=== PATIENT | female | born 1960 | race Hispanic/Latino ===

== ENCOUNTER 2017-03-05 13:00 | Inpatient (IN) | payer OTHER ==
[2017-03-05 14:15] LABS: Anion Gap 17 mmol/L; Blood Urea Nitrogen 15 mg/dL (7-17); Calcium 9.2 mg/dL (8.4-10.2); Carbon Dioxide 30 mmol/L (22-30); Chloride 100.3 mmol/L (98-107); Glucose 94 mg/dL (65-100); Potassium 5.1 mmol/L (3.6-5.0); Sodium 142 mmol/L (137-145)
[2017-03-05 14:20] LABS: Basophils % (Auto) 1.3 % (0.0-1.8); Eosinophils % (Auto) 0.9 % (0.0-4.3); Hematocrit 37.7 % (30.3-42.9); Hemoglobin 12.1 gm/dl (10.1-14.3); Mean Corpuscular HGB Conc 32 % (30-34); Mean Corpuscular Volume 78 fl (79-97); Platelet Count 363 K/mm3 (140-440); Red Blood Count 4.81 M/mm3 (3.65-5.03); Red Cell Distribution Width 15.4 % (13.2-15.2); White Blood Count 7.1 K/mm3 (4.5-11.0)
[2017-03-05 14:34] LABS: Mean Corpuscular Hemoglobin 25 pg (28-32)
[2017-03-05] MEDS ORDERED: MORPHINE IV ONE (20:55)
[2017-03-05] MEDS ORDERED: BABY ASPIRIN PO ONE (20:55)
--- NOTE | 2017-03-05 21:00 | Emergency Department Report ---
ED Chest Pain HPI - General Chief Complaint: Chest Pain Stated Complaint: LT CHEST PAIN/SOB Time Seen by Provider: 03/05/17 20:49 Source: patient Mode of arrival: Ambulatory Limitations: No Limitations - History of Present Illness Initial Comments: This is a 57-year-old female presents to the emergency department from home with complaint of left-sided heaviness/pressure in the chest. Patient tried to deal with the discomfort and went to work. However she started feeling diaphoretic and had some tingling in the left side of the jaw and in her hands and became concerned. She denies any significant shortness of breath at this time. She is a tobacco smoker but is down to a few cigarettes per day. She did not take anything specifically to treat her symptoms today. She has a past medical history of cardiomyopathy, atrial fibrillation. She is not currently have a primary care doctor. She sees a Dr. Metcalf at the [facility] for cardiology. She said she recently had an echocardiogram but does not no the results. She last had a stress test 2 years ago here at [facility]. No recent travel or sick contacts at home. Severity scale (0 -10): 8 - Related Data Home Medications Medication Instructions Recorded Confirmed Last Taken Digoxin [Lanoxin] 0.25 mg PO DAILY 09/24/16 09/24/16 03/05/17 Escitalopram [Lexapro] 10 mg PO DAILY 09/24/16 09/24/16 03/05/17 Furosemide [Lasix TAB] 40 mg PO QDAY 09/24/16 09/24/16 03/05/17 Losartan [Cozaar] 50 mg PO QDAY 09/24/16 09/24/16 03/05/17 Metoprolol [Lopressor] 25 mg PO BID 09/24/16 09/24/16 03/05/17 Potassium Chloride 10 meq PO QDAY 09/24/16 09/24/16 03/05/17 Warfarin [Coumadin] 2.5 mg PO 3XW 09/24/16 09/24/16 03/05/17 Warfarin [Coumadin] 5 mg PO 4XW 09/24/16 09/24/16 03/05/17 Previous Rx's Medication Instructions Recorded Last Taken Type HYDROcodone/APAP 10-325 [Pep[place]rell 1 each PO Q6HR PRN #10 tablet 03/14/15 03/05/17 Rx 10-325 mg TAB] PHENObarb/HYOSCY/ATROPINE/SCOP 16.2 mg PO Q4HR #10 tablet 03/14/15 03/05/17 Rx [] Temazepam [Restoril] 15 mg PO QHS PRN #30 capsule 03/14/15 03/05/17 Rx HYDROcodone/APAP 5-325 [Pepperell 1 each PO Q6HR PRN #8 tablet 09/24/16 03/05/17 Rx 5/325] Allergies Allergy/AdvReac Type Severity Reaction Status Date / Time NSAIDS (Non-Steroidal AdvReac Unknown Verified 09/15/16 14:36 Anti-Inflamma NETTA score - Netta Score Age > 65: (0) No Aspirin use within the Past 7 Days: (0) No 3 or more CAD Risk Factors: (1) Yes 2 or more Angina events in past 24 hrs: (1) Yes Known CAD with more than 50% Stenosis: (0) No Elevated Cardiac Markers: (0) No ST Deviation Greater than 0.5mm: (0) No NETTA Score: 2 ED Review of Systems ROS: Stated complaint: LT CHEST PAIN/SOB Other details as noted in HPI Comment: All other systems reviewed and negative Constitutional: diaphoresis. denies: chills, fever Eyes: denies: eye pain, eye discharge, vision change ENT: denies: ear pain, throat pain Respiratory: denies: cough, shortness of breath, wheezing Cardiovascular: chest pain, edema Gastrointestinal: denies: abdominal pain, nausea, diarrhea Genitourinary: denies: urgency, dysuria, discharge Musculoskeletal: denies: back pain, joint swelling, arthralgia Skin: denies: rash, lesions Neurological: paresthesias. denies: headache ED Past Medical Hx - Past Medical History Previous Medical History?: Yes Hx Hypertension: Yes Hx Congestive Heart Failure: No Hx Diabetes: No Hx Asthma: No Hx COPD: No Hx HIV: No Additional medical history: Atrial fibrillation - Surgical History Past Surgical History?: Yes Hx Cholecystectomy: Yes Additional Surgical History: gastric by-pass, oophorectomy, hysterectomy, skin grafts, exploratory laparotomy - Social History Smoking Status: Light Tobacco Smoker Substance Use Type: None - Medications Home Medications: Home Medications Medication Instructions Recorded Confirmed Last Taken Type HYDROcodone/APAP 10-325 [Pepperell 1 each PO Q6HR PRN #10 tablet 03/14/15 03/05/17 Rx 10-325 mg TAB] PHENObarb/HYOSCY/ATROPINE/SCOP 16.2 mg PO Q4HR #10 tablet 03/14/15 03/05/17 Rx [] Temazepam [Restoril] 15 mg PO QHS PRN #30 capsule 03/14/15 09/24/16 03/05/17 Rx Digoxin [Lanoxin] 0.25 mg PO DAILY 09/24/16 09/24/16 03/05/17 History Escitalopram [Lexapro] 10 mg PO DAILY 09/24/16 09/24/16 03/05/17 History Furosemide [Lasix TAB] 40 mg PO QDAY 09/24/16 09/24/16 03/05/17 History HYDROcodone/APAP 5-325 [Pepperell 1 each PO Q6HR PRN #8 tablet 09/24/16 03/05/17 Rx 5/325] Losartan [Cozaar] 50 mg PO QDAY 09/24/16 09/24/16 03/05/17 History Metoprolol [Lopressor] 25 mg PO BID 09/24/16 09/24/16 03/05/17 History Potassium Chloride 10 meq PO QDAY 09/24/16 09/24/16 03/05/17 History Warfarin [Coumadin] 2.5 mg PO 3XW 09/24/16 09/24/16 03/05/17 History Warfarin [Coumadin] 5 mg PO 4XW 09/24/16 09/24/16 03/05/17 History ED Physical Exam - General Limitations: No Limitations - Other Other exam information: GENERAL: The patient is well-developed well-nourished. HEENT: Normocephalic. Atraumatic. Extraocular motions are intact. Patient has moist mucous membranes. Pupils equal reactive to light bilaterally. NECK: Supple. Trachea is midline. CHEST/LUNGS: Irregularly irregular with controlled rate. HEART/CARDIOVASCULAR: Regular. There is no tachycardia. There is no gallop rub or murmur. ABDOMEN: Abdomen is soft, nontender. Patient has normal bowel sounds. There is no abdominal distention. SKIN: Skin is warm and dry. NEURO: The patient is awake, alert, and oriented. The patient is cooperative. The patient has no focal neurologic deficits. The patient has normal speech. MUSCULOSKELETAL: There is no tenderness or deformity. There is no limitation range of motion. There is no evidence of acute injury. ED Course Vital Signs 03/05/17 03/05/17 03/05/17 13:35 20:20 20:31 Temperature 98.7 F Pulse Rate 72 84 Respiratory 18 38 H Rate Blood Pressure 146/88 Blood Pressure [Left] O2 Sat by Pulse 98 96 97 Oximetry 03/05/17 03/05/17 03/05/17 20:40 20:45 20:50 Temperature Pulse Rate 73 78 71 Respiratory 7 L 14 18 Rate Blood Pressure 127/93 136/81 Blood Pressure 152/64 [Left] O2 Sat by Pulse 98 98 Oximetry 03/05/17 03/05/17 03/05/17 21:00 21:10 21:20 Temperature Pulse Rate 73 80 76 Respiratory 12 16 17 Rate Blood Pressure 149/90 149/90 149/105 Blood Pressure [Left] O2 Sat by Pulse 97 98 98 Oximetry 03/05/17 03/05/17 03/05/17 21:30 21:40 21:50 Temperature Pulse Rate 73 74 85 Respiratory 16 9 L 10 L Rate Blood Pressure 140/80 140/80 138/77 Blood Pressure [Left] O2 Sat by Pulse 99 99 99 Oximetry 03/05/17 03/05/17 03/05/17 22:00 22:10 22:20 Temperature Pulse Rate 77 76 77 Respiratory 34 H 10 L 23 Rate Blood Pressure 133/76 133/76 124/79 Blood Pressure [Left] O2 Sat by Pulse 98 99 Oximetry 03/05/17 03/05/17 03/05/17 22:30 22:40 23:32 Temperature Pulse Rate 74 74 Respiratory 12 9 L Rate Blood Pressure 122/70 122/70 122/70 Blood Pressure [Left] O2 Sat by Pulse 98 98 98 Oximetry 03/05/17 03/05/17 03/05/17 23:40 23:50 23:52 Temperature Pulse Rate 71 67 76 Respiratory 12 13 11 L Rate Blood Pressure 121/73 129/75 129/75 Blood Pressure [Left] O2 Sat by Pulse 97 98 97 Oximetry 03/06/17 03/06/17 03/06/17 00:00 00:10 00:20 Temperature Pulse Rate 67 69 79 Respiratory 11 L 30 H 11 L Rate Blood Pressure 125/68 122/70 127/64 Blood Pressure [Left] O2 Sat by Pulse 96 95 95 Oximetry 03/06/17 03/06/17 03/06/17 00:30 00:40 00:50 Temperature Pulse Rate 70 69 68 Respiratory 12 24 12 Rate Blood Pressure 132/68 132/68 137/58 Blood Pressure [Left] O2 Sat by Pulse 95 96 96 Oximetry 03/06/17 03/06/17 03/06/17 01:00 01:10 01:20 Temperature Pulse Rate 77 85 81 Respiratory 11 L 24 18 Rate Blood Pressure 134/59 134/59 129/53 Blood Pressure [Left] O2 Sat by Pulse 95 95 96 Oximetry 03/06/17 03/06/17 03/06/17 01:30 01:40 01:50 Temperature Pulse Rate 80 81 74 Respiratory 15 15 30 H Rate Blood Pressure 141/80 141/80 141/80 Blood Pressure [Left] O2 Sat by Pulse 94 94 97 Oximetry 03/06/17 03/06/17 02:00 02:10 Temperature Pulse Rate 83 76 Respiratory 13 14 Rate Blood Pressure 117/69 117/69 Blood Pressure [Left] O2 Sat by Pulse 96 97 Oximetry ED Medical Decision Making - Lab Data Result diagrams: 03/05/17 13:37 03/05/17 13:37 - EKG Data -: EKG Interpreted by Me - EKG Data Interpretation: other (atrial fibrillation, normal axis, normal rate, nonspecific ST-T changes) - Radiology Data Radiology results: report reviewed, image reviewed interpreted by me: Chest x-ray did not show any acute process. Heart is normal shape and size. No effusions. No pneumothorax. No signs of pneumonia seen. CT angiography of the chest shows no definite acute pulmonary embolism. Nodular lesions are seen in the left lower lobe and left upper lobe. This is a nonspecific finding. It could be related to infection or scarring but other neoplastic process is not excluded. Follow-up recommended in 3 months. - Medical Decision Making 57-year-old female presents with acute left-sided chest pressure and discomfort. Patient is chronically in atrial fibrillation. She had a subtherapeutic INR level so a d-dimer was sent. D-dimer was elevated and equivocal so CT angiography was done. CT does not show any signs of pulmonary embolism but does show some nonspecific left-sided lung nodules. The patient continues to have some discomfort and has not had a full cardiac workup including stress test and therefore will be admitted to the hospital for further evaluation and treatment. She's been accepted for admission by the hospitalist, Dr. Sood. - Differential Diagnosis [place], PE, pneumonia, CHF Critical Care Time: No Critical care attestation.: If time is entered above; I have spent that time in minutes in the direct care of this critically ill patient, excluding procedure time. ED Disposition Clinical Impression: Lung nodules, Subtherapeutic international normalized ratio (INR) Chest pain Qualifiers: Chest pain type: unspecified Qualified Code(s): R07.9 - Chest pain, unspecified Atrial fibrillation Qualifiers: Atrial fibrillation type: chronic Qualified Code(s): I48.2 - Chronic atrial fibrillation Disposition: OP ADMITTED IP TO THIS HOSP Is pt being admited?: Yes Condition: Stable Time of Disposition: 03:19
[2017-03-05] MEDS ORDERED: MORPHINE ONE (21:02)
[2017-03-05 21:42] LABS: INR 1.3 (0.87-1.13)
[2017-03-05 21:43] LABS: Partial Thromboplastin Time 30.6 Sec. (24.2-36.6)
[2017-03-05] MEDS ORDERED: NACL ONE (22:44)
--- NOTE | 2017-03-05 23:30 | Cat Scan Report ---
FINAL REPORT EXAM: CT ANGIO CHEST HISTORY: CP, elevated dimer TECHNIQUE: Serial axial images through the chest during intravenous administration of 100 milliliters Omnipaque 350 contrast with coronal, sagittal and oblique reconstructions PRIORS: None. FINDINGS: Mixed density nodular foci are seen in the left lower lobe. The largest of these measures approximately 7 millimeters. There is a 4.1 millimeter nodular focus in the left upper lobe which can be seen in series 3, image 43. No pleural effusion is seen. No adenopathy is seen in the mediastinum. Heart measures approximately 14.5 centimeters in length. No abnormal filling defects are identified in the pulmonary arteries. Surgical sequelae are seen in the stomach. There are degenerative changes in the spine. IMPRESSION: 1. No definite acute pulmonary embolism is identified. 2. Nodular lesions are seen in the left lower lobe and left upper lobe. This is a nonspecific finding. It could be related to infection or scarring, but other neoplastic process is not excluded. There are currently no studies available for direct comparison. Follow-up study can be performed in 3 months to assess for stability.
[2017-03-06] MEDS ORDERED: TYLENOL PO PRN (00:29)
[2017-03-06] MEDS ORDERED: MORPHINE IV PRN (00:29)
[2017-03-06] MEDS ORDERED: NITROSTAT SL PRN (00:29)
[2017-03-06] MEDS ORDERED: NORCO 10/325 PO PRN (00:40)
[2017-03-06] MEDS ORDERED: RESTORIL PO PRN (00:40)
[2017-03-06] MEDS ORDERED: ATROPINE PO SCH (02:00)
[2017-03-06] MEDS ORDERED: HYOSCY PO SCH (02:00)
[2017-03-06] MEDS ORDERED: SCOP PO SCH (02:00)
[2017-03-06] MEDS ORDERED: PHENOBARB PO SCH (02:00)
[2017-03-06] MEDS: ZOFRAN IV PRN ×2 (02:44→11:22)
[2017-03-06] MEDS: MORPHINE IV PRN ×2 (02:44→11:22)
[2017-03-06] MEDS: NITRO-BID 2% TP SCH ×3 (02:45→13:29)
[2017-03-06] MEDS ORDERED: HEPARIN SUB-Q SCH (06:00)
--- NOTE | 2017-03-06 06:45 | History and Physical Report ---
CHIEF COMPLAINT: Chest pain. HISTORY OF PRESENT ILLNESS: The patient is a 57-year-old female who started having left-sided precordial chest heaviness at home and went to walk and started noticing diaphoresis and tingling in the left hand. Also, the patient felt nauseated with some shortness of breath. The patient noted that she had 2D echo recently, the last 7 to 14 days and does not know the results, because she has history of cardiomyopathy, had a stress test done 2 years ago at [facility]. There is no history of dizziness. The patient admitted to having some spots in her vision during this episode of chest pain. PAST MEDICAL HISTORY: Pertinent for hypertension, atrial fibrillation, on Coumadin, cardiomyopathy. PAST SURGICAL HISTORY: Pertinent for cholecystectomy, gastric bypass surgery, oophorectomy, hysterectomy, skin graft, exploratory laparotomy. SOCIAL HISTORY: The patient smokes cigarettes. She does not drink alcohol and does not use illicit drugs. FAMILY HISTORY: Pertinent for heart disease in the mother. MEDICATIONS: The patient is on the following medications: [place]yce 10/325 mg 1 one by mouth every 6 hours as needed for pain, phenobarbital/hyoscyamine/atropine, ____ mg every 4 hours, temazepam 15 mg at bedtime for insomnia, digoxin 0.25 mg by mouth daily, Lexapro 10 mg by mouth daily, Lasix 40 mg by mouth daily, losartan or Cozaar 50 mg by mouth daily, metoprolol, Lopressor 25 mg by mouth twice daily, potassium chloride 10 mEq by mouth daily, Coumadin 2.5 mg 3 times a week and 5 mg 4 times a week. ALLERGIES: The patient is allergic to nonsteroidal antiinflammatory agents. REVIEW OF SYSTEMS: CONSTITUTIONAL: There is no fever, no chills. Diaphoresis present. HEENT: There is no headache or sore throat. CARDIOVASCULAR: Chest pain present. No orthopnea. RESPIRATORY: Shortness of breath present. No cough. GASTROINTESTINAL SYSTEM: There is nausea, but no vomiting, no abdominal pain, diarrhea or constipation. NEUROLOGICAL SYSTEM: There is no numbness, no dizziness, no altered mental status. MUSCULOSKELETAL SYSTEM: There is no joint pain or swelling. DERMATOLOGICAL SYSTEM: There is no skin rash or itching. GENITOURINARY: There is no dysuria, hematuria, or flank pain. Rest of system review is normal. PHYSICAL EXAMINATION: GENERAL: At the time of exam, the patient was found to be alert and oriented x 3 and not in acute distress. VITAL SIGNS: Shows normal temperature with pulse of 80, respirations 15, blood pressure 141/80, O2 sat of 94% on room air. HEENT: Showed pupils to be equal, round, reactive to light and accommodation. Extraocular muscles are intact. NECK: Supple with no JVD or carotid bruit. CARDIOVASCULAR SYSTEM: Show first and second heart sounds with no gallops or murmurs. RESPIRATORY: Showed good air entry on both sides of the lung with no abnormal breath sounds. GASTROINTESTINAL: Shows abdomen to be full, soft, nontender with no organomegaly or rigidity. NEUROLOGICAL: Showed no focal deficit. MUSCULOSKELETAL: Show no joint swelling or tenderness. DERMATOLOGICAL: Show no skin rash. GENITOURINARY: Showing no costovertebral angle tenderness. PERTINENT LABORATORY DATA AND IMAGING STUDIES: The patient had a CT angiogram of the chest done that shows no definite acute pulmonary embolism, but there is finding of nodular lesions in the left lower lobe and left upper lobe and the radiologist say that it is nonspecific and said it could be related to infection or scarring, though the other neoplastic processes are not excluded, there are currently no studies available for direct comparison and the radiologist recommended a followup study in 3 months to assess for stability of these nodules in the left lung. The patient had CBC done with normal white count, normal hemoglobin and normal hematocrit. CBC differential was unremarkable. Coagulation studies showed a PT of 16.1 with INR of 1.30, which is subtherapeutic for the patient, expected INR of 2 to 3. The patient's D-dimer was elevated with a value of 352 which was ____ for his CT angiogram with chest pain. Chemistry shows slight decrease in potassium of 5.1 and normal renal function test and cardiac enzyme, troponin was unremarkable. Digoxin level was low with a value of 0.7. DIAGNOSIS: Chest pain. PLAN: The patient will be admitted to medical floor on telemetry using chest pain pathway. We will have cardiac enzymes checked q. 6 hours x 2 more level. The patient will be on nitro paste half inch to anterior chest wall every 8 hours and will be on sublingual nitroglycerin 0.4 mg every 5 minutes for breakthrough chest pain. The patient will also be on IV morphine 2 mg every 6 hours as needed for pain and will be on IV Zofran 4 mg every 6 hours for nausea and vomiting. The patient will be on Tylenol 650 mg by mouth for fever, headache and will be n.p.o. until morning for a Lexiscan stress test in the morning. The patient will be on oxygen by nasal cannula at 2 liters per minute and will be on her home medications as shown in the medication reconciliation section. The patient will not be on aspirin because of intake of Coumadin. JOB# [id number] OCN/NTS
[2017-03-06 07:24] LABS: Creatine Kinase MB 1.7 ng/mL (0.0-4.0)
--- NOTE | 2017-03-06 07:35 | XRay Report ---
Single view chest: Compared to 03/13/15. History: Chest pain. Findings: Cardiomegaly. Trachea is midline. No consolidation, pneumothorax or pleural effusion. Impression: No acute cardiopulmonary findings.
[2017-03-06] MEDS ORDERED: LEXISCAN IV ONE (09:00)
--- NOTE | 2017-03-06 09:11 | Discharge Summary ---
Providers - Providers Date of Admission: 03/06/17 00:28 Date of discharge: 03/06/17 Attending physician: ROLY MALCOLM MD Primary care physician: WHITE SPOOLER Hospitalization Condition: Stable Disposition: DISCHARGED TO HOME OR SELFCARE Time spent for discharge: 35 MINS Core Measure Documentation - Palliative Care Palliative Care/ Comfort Measures: Not Applicable - Core Measures Any of the following diagnoses?: none - VTE Discharge Requirements Deep Vein Thrombosis/Pulmonary Embolism Present on Admission: No Exam - Constitutional Vitals: Temp Pulse Resp BP Pulse Ox 97.8 F 87 18 100/55 97 03/06/17 05:09 03/06/17 06:20 03/06/17 05:09 03/06/17 05:09 03/06/17 05:09 Plan Activity: advance as tolerated, fall precautions Diet: low fat, low salt Special Instructions: record daily BP diary, smoking cessation Follow up with: PRIMARY CARE, [Primary Care Provider] - 3-5 Days
--- NOTE | 2017-03-06 09:21 | Admit Criteria Form ---
Admission Criteria Documentation: CARDIOLOGY GRG Clinical Indications for Admission to Inpatient Care ( Place 'X' for any and all applicable criteria): Hospital admission is needed for appropriate care of the patient because of ANY ONE of the following (1): [ ] I. Hemodynamic instability as indicated by ALL of the following (1)(2)(3) (4)(5) [ ]a) Vital signs or other findings not as expected for chronic patient condition or baseline [ ]b) Instability indicated by ANY ONE of the following: [ ]i) Hypotension [ ]ii) Symptomatic Tachycardia unresponsive to treatment ( e.g., analgesia, fluids, sedation as indicated) [ ]iii) Inadequate perfusion indicated by ANY ONE of the following: [ ] 1) Lactic acidosis (> 2 mmol/L) [ ] 2) New abnormal capillary refill (> 3 seconds) [ ] 3) Reduced urine output [ ] 4) New altered mental status [ ]iv) Orthostatic vital sign changes unresponsive to treatment (e.g., fluids) [ ]v) IV inotropic or vasopressor medication required to maintain adequate blood pressure or perfusion [ ] II. Severe heart failure as indicated by ANY ONE of the following(17)(18) [ ]a) Respiratory distress [ ]b) Hypotension [ ]c) Anasarca (refractory to outpatient therapy) [ ]d) Cardiac arrhythmias of immediate concern [ ]e) Myocardial ischemia [ ] III. Cardiac arrhythmias or findings of immediate concern indicated by ANY ONE of the following (19)(20): [ ] a) Heart rhythms that are inherently dangerous or unstable indicated by ANY ONE of the following (21)(22)(23): [ ] i) Resuscitated ventricular fibrillation or cardiac arrest [ ] ii) Ventricular escape rhythm [ ] iii) Sustained ventricular tachycardia (30 seconds or more of ventricular rhythm at greater than 100 beats per minute) [ ] iv) Nonsustained ventricular tachycardia and ANY ONE of the following: [ ] 1) Suspected cardiac ischemia as cause or consequence of ventricular tachycardia [ ] 2) In setting of acute myocarditis [ ] b) Unstable cardiac conduction defects indicated by ANY ONE of the following(23)(24)(25) [ ] i) Type II second-degree atrioventricular block [ ]ii) Third-degree atrioventricular block [ ]iii) New-onset left bundle branch block with suspected myocardial ischemia [ ]c) Any heart rhythm and ANY ONE of the following (21)(22)(26)(27) (28) [ ] i) Continuous long-term ECG monitoring needed (e.g., initiation of drug requiring monitoring for more than 24 hours) [ ] ii) Patient has automatic implanted cardioverter defibrillator that is repeatedly firing, malfunctioning, or in need of immediate adjustment of settings beyond the scope of ambulatory or observation care [ ]d) Heart rhythms of concern due to ANY ONE of the following: [ ] i) Hypotension [ ] ii) Respiratory distress [ ] iii) Association with other significant symptoms (e.g., bradycardia with syncope or ongoing dizziness, supraventricular tachycardia with chest pain (14)(15)(17) [ ] IV. Monitoring for cardiac contusion beyond the scope of observation care needed [A](30)(31)(32) [ ] V. Surgical or device complication (e.g., valve replacement complication , pacemaker dysfunction) (35)(41)(44)(45)(46) [ ] . Inpatient palliative care needed. [B](49) Also use Inpatient Palliative Care Criteria [ ] VII. Nonbacterial thrombotic (marantic) endocarditis (36)(43)(47)(48) [X ] VIII. Cardiology condition, symptom, or finding for which emergency and observation care has failed or are not considered appropriate. [ ] IX. Acute valvular disease requiring inpatient as indicated by ANY ONE of the following (41) [ ]a) Acute valvular regurgitation (42) [ ]b) Noninfectious valvulitis (43) [ ]c) Obstructive valve thrombosis [ ]d) Paravalvular leak [ ]e) Other significant valvular disorder remaining after emergency or observation level of care (as appropriate) [ ]X. Pericardial disease requiring inpatient treatment as indicated by ANY ONE of the following (33)(34)(35)(36)(37) [ ]a) Suspected tamponade (38)(39)(40) [ ]b) Hemopericardium [ ]c) Other significant pericardial disorder remaining after emergency or observation level of care (as appropriate) [ ] XI. Cardiac ischemia beyond scope of emergency and observation care. [ ] XII. Hypertension requiring inpatient treatment as indicated by ANY ONE of the following (6)(7)(8) [ ]a) SBP greater than 220 mm Hg or DBP greater than 120 mmHg despite treatment [ ]b) SBP greater than 140 mm Hg or DBP greater than 100 mm Hg with evidence of acute end organ damage as indicated by ANY ONE of the following [ ] i) Altered mental status [ ] ii) Acute renal failure as indicated by new onset of ANY ONE of the following (9)(10)(11)(12)(13) [ ]1) 3-fold rise in serum creatinine from baseline [ ]2) Serum creatinine greater than 4 mg/dL ( 354 micromoles/L) with acute rise greater than 0.5 mg/dL (44.2 micromoles/L) [ ]3) Reduction of more than 75% in estimated glomerular filtration rate from baseline [ ]4) Estimated glomerular filtration rate less than 35 mL/min/1.73m2 (0.59 mL/sec/1.73m2) in child up to 18 years of age [ ]5) Cessation of urine output indicated by ALL of the following [ ]A. Adequate volume status [ ]B. Inadequate urine output as indicated by ANY ONE of the following [ ]a. Urine output less than 0.3 mL/kg/hr for 24 hours [ ]b. Anuria (urine output less than 0.1 mL/kg/hr) for 12 hours [ ] iii) Aortic dissection [ ] iv) Myocardial Ischemia [ ] v) Left ventricular heart failure [ ]vi) Retinal Hemorrhage [ ]vii) Other significant finding [ ]c) Hypertension in child requiring inpatient treatment as indicated by ALL of the following(14)(15)(16) [ ] i) Outpatient treatment not effective, not available, or not appropriate [ ]ii) SBP or DBP greater than 95th percentile for age [ ]iii) Evidence of acute end organ damage as indicated by ANY ONE of the following [ ]1) Altered mental status [ ]2) Acute renal failure as indicated by new onset of ANY ONE of the following(9)(10)(11)(12)(13) [ ]A. 3-fold rise in serum creatinine from baseline [ ]B. Serum creatinine greater than 4 mg/dL (354 micromoles/L) with acute rise greater than 0.5 mg/dL (44.2 micromoles/L) [ ]C. Reduction of more than 75% in estimated glomerular filtration rate from baseline [ ]D. Estimated glomerular filtration rate less than 35 mL/min/1.73m2 (0.59 mL/sec/1.73m2) in child up to 18 years of age [ ]E. Cessation of urine output indicated by ALL of the following [ ]a. Adequate volume status [ ]b. Inadequate urine output as indicated by ANY ONE of the following [ ]i) Urine output less than 0.3 mL/kg/hr for 24 hours [ ]ii) Anuria ( urine output less than 0.1 mL/kg/hr) for 12 hours [ ]3) Severe headache [ ]4) Visual disturbance [ ]5) Retinal hemorrhage [ ]6) Other significant finding [ ]XIII. Complications of transplanted heart indicated by ANY ONE of the following(61): [ ]a) Acute graft rejection requiring inpatient management (eg, intravenous immunosuppression)(62)(63) [ ]b) Acute graft heart failure indicated by ANY ONE of the following(64): [ ]i) Hemodynamic instability [ ]ii) Cardiac arrhythmias of immediate concern [ ]iii) Pulmonary edema that is very severe (eg, mechanical ventilation needed, imminent or likely, need for 100% oxygen to keep oxygen saturation above 90%) [ ]iv) Pulmonary edema that is persistent as indicated by ALL of the following: [ ]1) New need for oxygen therapy to keep oxygen saturation above 90% (or increased FiO2 need from baseline) [ ]2) Has not improved sufficiently with emergency department or observation care IV diuretics or other heart failure treatments[E] [ ]v) Altered mental status that is severe or persistent [ ]vi) Increased creatinine (new on laboratory test) with reduction of more than 50% in estimated glomerular filtration rate from baseline [ ]vii) Progressively (ongoing) rising creatinine (known from past laboratory test) with reduction of more than 25% in estimated glomerular filtration rate from baseline [ ]viii) Acute renal failure [ ]ix) Acute peripheral ischemia (eg, examination shows pulseless, cool, mottled, or cyanotic extremity) [ ]x) Pulmonary artery catheter monitoring needed [ ]xi) Other sign or symptom of heart failure requiring inpatient treatment (ie, too severe or not responsive to outpatient and observation care treatment) [ ]c) Infection requiring inpatient management (eg, Hemodynamic instability, need for intravenous antimicrobial treatment)(66)(67)(68)(69)(70) [ ]d) Cardiac allograft vasculopathy requiring inpatient management ( eg evidence of cardiac ischemia)(71) [ ]e) Other complication of transplanted heart (eg, stroke, severe pulmonary hypertension, severe valvular dysfunction) requiring inpatient management(72) The original [facility] content created by [facility] has been revised. The portions of the content which have been revised are identified through the use of italic text or in bold, and [facility] has neither reviewed nor approved the modified material. All other unmodified content is copyright [facility]. Please see references footnoted in the original [facility] edition 2016 Admission Criteria Met: Yes
[2017-03-06] MEDS ORDERED: LASIX PO SCH (10:00)
[2017-03-06] MEDS ORDERED: NON-FORMULARY (Potassium Chloride [Potassium Chloride] 10 MEQ) PO SCH (10:00)
[2017-03-06] MEDS ORDERED: LEXAPRO PO SCH (10:00)
[2017-03-06] MEDS ORDERED: ASPIRIN PO SCH (10:00)
[2017-03-06] MEDS ORDERED: COZAAR PO SCH (10:00)
[2017-03-06] MEDS ORDERED: LOPRESSOR PO SCH (10:00)
[2017-03-06] MEDS ORDERED: K-DUR PO SCH (10:00)
--- NOTE | 2017-03-06 10:34 | Discharge Summary ---
Providers - Providers Date of Admission: 03/06/17 00:28 Date of discharge: 03/06/17 Attending physician: ROLY MALCOLM MD Primary care physician: LINE SERVICE ATTENDANT Hospitalization Reason for admission: chest pain Condition: Stable Hospital course: Patient is a 57 year old female with hx of atrial fibrillation and cardiomyopathy who presented with complaints of chest pain that has been ongoing for months and have been evaluated by cardiology outpatient but states worsening pain and exertional dyspnea. Stress test done was negative. On review patient has reproducible pain in the left submammary area and worse with movement. Her symptoms improved while in the hospital, patient was noted to have subtherapeutic INR and was provided counselling. CTA done was noted have nodular lesions on the left lower lobe and this was discussed with the patient and the need to follow up with PCP. Patient was informed that her diagnosis was mainly Pericarditis and should be treated with NSAIDS, but she states she is unable to take NSAIDS * Atypical chest pain * Pericarditis * Atrial Fibrillation * Nonischemic cardiomyopathy * Pulmonary Nodule. Disposition: DISCHARGED TO HOME OR SELFCARE Time spent for discharge: 35 mins Core Measure Documentation - Palliative Care Palliative Care/ Comfort Measures: Not Applicable - Core Measures Any of the following diagnoses?: none - VTE Discharge Requirements Deep Vein Thrombosis/Pulmonary Embolism Present on Admission: No Exam - Constitutional Vitals: Temp Pulse Resp BP Pulse Ox 97.6 F 61 14 107/59 97 03/06/17 10:00 03/06/17 10:00 03/06/17 10:00 03/06/17 10:00 03/06/17 10:00 General appearance: Present: no acute distress, well-nourished, obese - EENT Eyes: Present: PERRL ENT: hearing intact - Neck Neck: Present: supple, normal ROM - Respiratory Respiratory effort: normal - Cardiovascular Rhythm: regularly irregular Heart Sounds: Present: S1 & S2 - Extremities Extremities: no ischemia, pulses intact, pulses symmetrical, normal temperature , normal color, Full ROM Peripheral Pulses: within normal limits - Abdominal General gastrointestinal: Present: soft, non-tender, non-distended, normal bowel sounds - Integumentary Integumentary: Present: clear, warm, dry - Musculoskeletal Musculoskeletal: strength equal bilaterally - Psychiatric Psychiatric: appropriate mood/affect - Neurologic Neurologic: CNII-XII intact, moves all extremities Plan Activity: advance as tolerated, fall precautions Diet: low fat, low cholesterol Special Instructions: record daily BP diary Additional Instructions: follow with primary ham boner. CHECK INR in 3 days. LEVELS ARE SUBTHERAPEUTIC Follow up with: PRIMARY CARE, [Primary Care Provider] - 3-5 Days Prescriptions: methOCARBAMOL [Robaxin TAB] 500 mg PO BID #14 tab
[2017-03-06 11:24] VITALS: BP 134/67
[2017-03-06 14:28] LABS: Creatine Kinase MB 2.2 ng/mL (0.0-4.0)
[2017-03-06 14:31] LABS: Creatine Kinase 90 units/L (30-135)
[2017-03-06] MEDS ORDERED: LANOXIN PO SCH (17:00)
--- NOTE | 2017-03-07 05:04 | Treadmill Report ---
INDICATION: Chest pain. ORDERING PHYSICIAN: Dr. Byrne. FINDINGS: There is no scintigraphic evidence of myocardial ischemia. The left ventricular cavity is mildly dilated. There is mild global left ventricular hypokinesis with the left ventricular ejection fraction measured at 47%. CONCLUSION: 1. No scintigraphic evidence of myocardial ischemia. 2. Mildly dilated left ventricular cavity with a left ventricular ejection fraction measuring 47%. JOB# [id number] MITCHELL/NTS
== END 2017-03-06 18:10 | disposition home or self-care (01) | DRG 313 ==
LOC: ED 13:00 → 4A 03-06 00:28
PROVIDERS: ADMIT Internal Medicine; ATTEND Internal Medicine
DX: R07.89 Other chest pain (principal); I42.9 Cardiomyopathy, unspecified; I31.9 Disease of pericardium, unspecified; Z90.49 Acquired absence of other specified parts of digestive tract; I48.91 Unspecified atrial fibrillation; Z90.710 Acquired absence of both cervix and uterus; I10 Essential (primary) hypertension; F17.200 Nicotine dependence, unspecified, uncomplicated; Z90.721 Acquired absence of ovaries, unilateral; R91.1 Solitary pulmonary nodule
CPT/HCPCS: 36415; 71010; 71275; 78452; 80048; 80162; 82550; 82553; 83880; 84484; 85025; 85379; 85610; 85730; 93005; 93010; 93017; 96374; A9502; J1644; J2270; J2405; J2785; Q9967

== ENCOUNTER 2017-03-17 07:42 | Inpatient (IN) | payer SELFPAY ==
[2017-03-17 08:33] LABS: Anion Gap 18 mmol/L; BUN/Creatinine Ratio 21.66; Basophils % (Auto) 0.5 % (0.0-1.8); Blood Urea Nitrogen 13 mg/dL (7-17); Calcium 9.4 mg/dL (8.4-10.2); Carbon Dioxide 29 mmol/L (22-30); Chloride 99.1 mmol/L (98-107); Eosinophils % (Auto) 1.4 % (0.0-4.3); Glucose 95 mg/dL (65-100); Hematocrit 37.6 % (30.3-42.9); Hemoglobin 12.1 gm/dl (10.1-14.3); Mean Corpuscular HGB Conc 32 % (30-34); Mean Corpuscular Volume 78 fl (79-97); Platelet Count 318 K/mm3 (140-440); Potassium 4.5 mmol/L (3.6-5.0); Red Blood Count 4.81 M/mm3 (3.65-5.03); Red Cell Distribution Width 14.9 % (13.2-15.2); Sodium 142 mmol/L (137-145); White Blood Count 8.1 K/mm3 (4.5-11.0)
[2017-03-17 09:00] LABS: Mean Corpuscular Hemoglobin 25 pg (28-32)
[2017-03-17 14:07] LABS: INR 1.17 (0.87-1.13)
[2017-03-17 14:08] LABS: Partial Thromboplastin Time 33.8 Sec. (24.2-36.6)
[2017-03-17 14:21] LABS: Alanine Aminotransferase 29 units/L (7-56); Albumin/Globulin Ratio 1.2 %; Alkaline Phosphatase 157 units/L (35-129); Total Protein 7.3 g/dL (6.3-8.2)
[2017-03-17 14:25] LABS: Bilirubin,Direct < 0.2 mg/dL (0-0.2)
--- NOTE | 2017-03-17 14:38 | Cat Scan Report ---
CT HEAD WITHOUT CONTRAST: HISTORY: Visual changes. Serial contiguous axial images were obtained through the cranium. Intravenous contrast material was not administered. The ventricles are normal in size and appearance. There is no mass effect or midline shift. No areas of abnormally increased or decreased attenuation are seen. No mass lesion is seen. The mastoid air cells and visualized portions of the sinuses are normal. IMPRESSION: Cranial CT scan within normal limits. No significant change since 03/09/15.
--- NOTE | 2017-03-17 15:26 | Emergency Department Report ---
ED Chest Pain HPI - General Chief Complaint: Extremity Problem,Nontraumatic Stated Complaint: NECK/SHOULDER PAIN Time Seen by Provider: 03/17/17 13:35 Source: patient Mode of arrival: Ambulatory Limitations: No Limitations - History of Present Illness Initial Comments: Triage note states that the patient was having a shoulder and neck pain, when I discussed the patient's history is she clearly describes it as chest pain radiating to the shoulder and the neck. She states that she was discharged from the [facility] 10 days ago with pericarditis after a stress test was negative. 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 She does appear to be somewhat hyperverbal and is taking Lexapro. 4 an echocardiogram last week". She states "you may find out what it showed but I can't". In any case she has history of chronic atrial fibrillation and is on Coumadin. She does not report any leg pain or swelling. She does not report any pleuritic pain. Not currently nauseated. She does not complain of dyspnea. Addition to her presenting complaint she does state that she had transient visual blurring when she looked at her cell phone. She does not complain of headache. She has no persistent change or diplopia. She denies focal weakness or numbness. She did denies speech coordination or gait disturbance. MD Complaint: chest pain -: week(s) Onset: during rest Pain Location: left chest Pain Radiation: LUE, neck Severity: moderate Quality: heaviness Consistency: intermittent, now resolved Improves With: nothing Worsens With: nothing Context: other (states history of pericarditis and atrial fibrillation.) re: denies: nausea, vomting, diaphoresis Other Symptoms: denies: cough, fever, syncope - Related Data Home Medications Medication Instructions Recorded Confirmed Last Taken Digoxin [Lanoxin] 0.25 mg PO DAILY 09/24/16 03/17/17 03/17/17 Furosemide [Lasix TAB] 40 mg PO QDAY 09/24/16 03/17/17 03/17/17 Losartan [Cozaar] 50 mg PO QDAY 09/24/16 03/17/17 03/17/17 Metoprolol [Lopressor TAB] 25 mg PO BID 09/24/16 03/17/17 03/17/17 Potassium Chloride 20 meq PO QDAY 09/24/16 03/17/17 03/17/17 Warfarin [Coumadin] 5 mg PO 4XW 09/24/16 03/17/17 03/16/17 Warfarin [Coumadin] 7.5 mg PO 3XW 09/24/16 03/17/17 03/15/17 FLUoxetine HCL [PROzac] 40 mg PO QDAY 03/17/17 03/17/17 03/17/17 buPROPion SR [Wellbutrin Sr] 150 mg PO QAM 03/17/17 03/17/17 03/17/17 Previous Rx's Medication Instructions Recorded Last Taken Type methOCARBAMOL [Robaxin TAB] 500 mg PO BID #14 tab 03/06/17 03/17/17 Rx Allergies Allergy/AdvReac Type Severity Reaction Status Date / Time NSAIDS (Non-Steroidal AdvReac Unknown Verified 09/15/16 14:36 Anti-Inflamma NETTA score - Netta Score Age > 65: (0) No Aspirin use within the Past 7 Days: (0) No 3 or more CAD Risk Factors: (1) Yes 2 or more Angina events in past 24 hrs: (1) Yes Known CAD with more than 50% Stenosis: (0) No Elevated Cardiac Markers: (0) No ST Deviation Greater than 0.5mm: (0) No NETTA Score: 2 ED Review of Systems ROS: Stated complaint: NECK/SHOULDER PAIN Other details as noted in HPI Constitutional: denies: chills, fever Eyes: denies: eye pain, eye discharge, vision change ENT: denies: ear pain, throat pain Respiratory: denies: cough, shortness of breath, wheezing Cardiovascular: as per HPI, chest pain. denies: palpitations Endocrine: no symptoms reported Gastrointestinal: denies: abdominal pain, nausea, diarrhea Genitourinary: denies: urgency, dysuria, discharge Musculoskeletal: denies: back pain, joint swelling, arthralgia Skin: denies: rash, lesions Neurological: denies: headache, weakness, paresthesias Psychiatric: denies: anxiety, depression Hematological/Lymphatic: denies: easy bleeding, easy bruising ED Past Medical Hx - Past Medical History Hx Hypertension: Yes Hx Congestive Heart Failure: No Hx Diabetes: No Hx Asthma: No Hx COPD: No Hx HIV: No Additional medical history: Atrial fibrillation - Surgical History Hx Cholecystectomy: Yes Additional Surgical History: gastric by-pass, oophorectomy, hysterectomy, skin grafts, exploratory laparotomy - Social History Smoking Status: Current Every Day Smoker Substance Use Type: None - Medications Home Medications: Home Medications Medication Instructions Recorded Confirmed Last Taken Type Digoxin [Lanoxin] 0.25 mg PO DAILY 09/24/16 03/17/17 03/17/17 History Furosemide [Lasix TAB] 40 mg PO QDAY 09/24/16 03/17/17 03/17/17 History Losartan [Cozaar] 50 mg PO QDAY 09/24/16 03/17/17 03/17/17 History Metoprolol [Lopressor TAB] 25 mg PO BID 09/24/16 03/17/17 03/17/17 History Potassium Chloride 20 meq PO QDAY 09/24/16 03/17/17 03/17/17 History Warfarin [Coumadin] 5 mg PO 4XW 09/24/16 03/17/17 03/16/17 History Warfarin [Coumadin] 7.5 mg PO 3XW 09/24/16 03/17/17 03/15/17 History methOCARBAMOL [Robaxin TAB] 500 mg PO BID #14 tab 03/06/17 03/17/17 03/17/17 Rx FLUoxetine HCL [PROzac] 40 mg PO QDAY 03/17/17 03/17/17 03/17/17 History buPROPion SR [Wellbutrin Sr] 150 mg PO QAM 03/17/17 03/17/17 03/17/17 History ED Physical Exam - General Limitations: No Limitations General appearance: alert, in no apparent distress - Head Head exam: Present: atraumatic, normocephalic - Eye Eye exam: Present: normal appearance, PERRL, EOMI. Absent: scleral icterus - ENT ENT exam: Present: mucous membranes moist - Neck Neck exam: Present: normal inspection - Respiratory Respiratory exam: Present: normal lung sounds bilaterally. Absent: respiratory distress - Cardiovascular Cardiovascular Exam: Present: tachycardia, irregular rhythm. Absent: systolic murmur, diastolic murmur, rubs, gallop - GI/Abdominal GI/Abdominal exam: Present: soft, normal bowel sounds. Absent: distended, tenderness, guarding, rebound - Extremities Exam Extremities exam: Present: normal inspection - Back Exam Back exam: Present: normal inspection - Neurological Exam Neurological exam: Present: alert, oriented X3 - Psychiatric Psychiatric exam: Present: normal affect, normal mood - Skin Skin exam: Present: warm, dry, intact, normal color. Absent: rash ED Course Vital Signs 03/17/17 03/17/17 03/17/17 07:45 12:32 12:40 Temperature 98.2 F Pulse Rate 109 H 99 H Respiratory 20 15 Rate Blood Pressure 177/114 129/107 Blood Pressure [Right] O2 Sat by Pulse 99 98 97 Oximetry 03/17/17 03/17/17 03/17/17 12:44 12:45 12:50 Temperature Pulse Rate 87 90 Respiratory 18 18 14 Rate Blood Pressure 129/107 Blood Pressure 129/107 [Right] O2 Sat by Pulse 99 99 99 Oximetry 03/17/17 03/17/17 03/17/17 13:00 13:10 13:20 Temperature Pulse Rate 90 101 H 94 H Respiratory 18 9 L 19 Rate Blood Pressure 129/107 137/107 137/107 Blood Pressure [Right] O2 Sat by Pulse 97 98 99 Oximetry 03/17/17 03/17/17 03/17/17 13:30 13:40 14:08 Temperature Pulse Rate 93 H 100 H 118 H Respiratory 13 19 Rate Blood Pressure 137/107 137/107 137/107 Blood Pressure [Right] O2 Sat by Pulse 97 99 98 Oximetry 03/17/17 03/17/17 03/17/17 14:10 14:20 14:30 Temperature Pulse Rate 109 H 86 96 H Respiratory 22 14 21 Rate Blood Pressure 165/70 165/70 165/70 Blood Pressure [Right] O2 Sat by Pulse 98 98 98 Oximetry 03/17/17 03/17/17 03/17/17 14:40 14:50 15:00 Temperature Pulse Rate 92 H 117 H 128 H Respiratory 10 L 17 12 Rate Blood Pressure 165/70 165/70 165/70 Blood Pressure [Right] O2 Sat by Pulse 97 96 95 Oximetry ED Medical Decision Making - Lab Data Result diagrams: 03/17/17 08:02 03/17/17 08:02 Laboratory Results - last 24 hr 03/17/17 03/17/17 03/17/17 08:02 08:02 10:48 WBC 8.1 RBC 4.81 Hgb 12.1 Hct 37.6 MCV 78 L MCH 25 L MCHC 32 RDW 14.9 Plt Count 318 Lymph % (Auto) 29.7 [place] % (Auto) 10.7 H Eos % (Auto) 1.4 Baso % (Auto) 0.5 Lymph # 2.4 [place] # 0.9 H Eos # 0.1 Baso # 0.0 Seg Neutrophils % 57.7 Seg Neutrophils # 4.7 PT INR APTT Sodium 142 Potassium 4.5 Chloride 99.1 Carbon Dioxide 29 Anion Gap 18 BUN 13 Creatinine 0.6 L Estimated GFR > 60 BUN/Creatinine Ratio 21.66 Glucose 95 Calcium 9.4 Total Bilirubin Direct Bilirubin AST ALT Alkaline Phosphatase Troponin T < 0.010 < 0.010 Total Protein Albumin Albumin/Globulin Ratio 03/17/17 03/17/17 03/17/17 13:48 13:48 13:48 WBC RBC Hgb Hct MCV MCH MCHC RDW Plt Count Lymph % (Auto) [place] % (Auto) Eos % (Auto) Baso % (Auto) Lymph # [place] # Eos # Baso # Seg Neutrophils % Seg Neutrophils # PT 14.8 INR 1.17 H APTT 33.8 Sodium Potassium Chloride Carbon Dioxide Anion Gap BUN Creatinine Estimated GFR BUN/Creatinine Ratio Glucose Calcium Total Bilirubin 0.30 Direct Bilirubin < 0.2 AST 27 ALT 29 Alkaline Phosphatase 157 H Troponin T < 0.010 Total Protein 7.3 Albumin 4.0 Albumin/Globulin Ratio 1.2 - EKG Data -: EKG Interpreted by [place] EKG shows normal: axis, intervals, QRS complexes, ST-T waves Rate: normal - EKG Data Interpretation: no acute changes, other (atrial fibrillation and then 90s nonspecific changes. No evidence of acute ischemia) - Radiology Data Radiology results: report reviewed (CT head no acute process) Critical care attestation.: If time is entered above; I have spent that time in minutes in the direct care of this critically ill patient, excluding procedure time. ED Disposition Clinical Impression: Subtherapeutic international normalized ratio (INR), Medical non-compliance Chest pain Qualifiers: Chest pain type: unspecified Qualified Code(s): R07.9 - Chest pain, unspecified Atrial fibrillation Qualifiers: Atrial fibrillation type: chronic Qualified Code(s): I48.2 - Chronic atrial fibrillation Disposition: OP ADMITTED IP TO THIS HOSP Is pt being admited?: Yes Does the pt Need Aspirin: Yes Condition: Stable Instructions: Chest Pain (ED) Referrals: PRIMARY CARE, [Primary Care Provider] - 3-5 Days Time of Disposition: 15:40
[2017-03-17] MEDS ORDERED: LOVENOX SUB-Q ONE ×2 (15:42→16:28)
--- NOTE | 2017-03-17 16:11 | XRay Report ---
AP CHEST : 03/17/17 15:40 CLINICAL: Chest pain. COMPARISON:03/05/17 FINDINGS: Normal heart and pulmonary vessels. The lungs are normally expanded and clear. The bones and soft tissues are unremarkable. IMPRESSION: Normal chest.
--- NOTE | 2017-03-17 16:34 | Admit Criteria Form ---
Admission Criteria Documentation: CARDIOLOGY GRG Clinical Indications for Admission to Inpatient Care ( Place 'X' for any and all applicable criteria): Hospital admission is needed for appropriate care of the patient because of ANY ONE of the following (1): [ ] I. Hemodynamic instability as indicated by ALL of the following (1)(2)(3) (4)(5) [ ]a) Vital signs or other findings not as expected for chronic patient condition or baseline [ ]b) Instability indicated by ANY ONE of the following: [ ]i) Hypotension [ ]ii) Symptomatic Tachycardia unresponsive to treatment ( e.g., analgesia, fluids, sedation as indicated) [ ]iii) Inadequate perfusion indicated by ANY ONE of the following: [ ] 1) Lactic acidosis (> 2 mmol/L) [ ] 2) New abnormal capillary refill (> 3 seconds) [ ] 3) Reduced urine output [ ] 4) New altered mental status [ ]iv) Orthostatic vital sign changes unresponsive to treatment (e.g., fluids) [ ]v) IV inotropic or vasopressor medication required to maintain adequate blood pressure or perfusion [ ] II. Severe heart failure as indicated by ANY ONE of the following(17)(18) [ ]a) Respiratory distress [ ]b) Hypotension [ ]c) Anasarca (refractory to outpatient therapy) [ ]d) Cardiac arrhythmias of immediate concern [ ]e) Myocardial ischemia [ ] III. Cardiac arrhythmias or findings of immediate concern indicated by ANY ONE of the following (19)(20): [ ] a) Heart rhythms that are inherently dangerous or unstable indicated by ANY ONE of the following (21)(22)(23): [ ] i) Resuscitated ventricular fibrillation or cardiac arrest [ ] ii) Ventricular escape rhythm [ ] iii) Sustained ventricular tachycardia (30 seconds or more of ventricular rhythm at greater than 100 beats per minute) [ ] iv) Nonsustained ventricular tachycardia and ANY ONE of the following: [ ] 1) Suspected cardiac ischemia as cause or consequence of ventricular tachycardia [ ] 2) In setting of acute myocarditis [ ] b) Unstable cardiac conduction defects indicated by ANY ONE of the following(23)(24)(25) [ ] i) Type II second-degree atrioventricular block [ ]ii) Third-degree atrioventricular block [ ]iii) New-onset left bundle branch block with suspected myocardial ischemia [ ]c) Any heart rhythm and ANY ONE of the following (21)(22)(26)(27) (28) [ ] i) Continuous long-term ECG monitoring needed (e.g., initiation of drug requiring monitoring for more than 24 hours) [ ] ii) Patient has automatic implanted cardioverter defibrillator that is repeatedly firing, malfunctioning, or in need of immediate adjustment of settings beyond the scope of ambulatory or observation care [ ]d) Heart rhythms of concern due to ANY ONE of the following: [ ] i) Hypotension [ ] ii) Respiratory distress [ ] iii) Association with other significant symptoms (e.g., bradycardia with syncope or ongoing dizziness, supraventricular tachycardia with chest pain (14)(15)(17) [ ] IV. Monitoring for cardiac contusion beyond the scope of observation care needed [A](30)(31)(32) [ ] V. Surgical or device complication (e.g., valve replacement complication , pacemaker dysfunction) (35)(41)(44)(45)(46) [ ] . Inpatient palliative care needed. [B](49) Also use Inpatient Palliative Care Criteria [ ] VII. Nonbacterial thrombotic (marantic) endocarditis (36)(43)(47)(48) [X] VIII. Cardiology condition, symptom, or finding for which emergency and observation care has failed or are not considered appropriate. [ ] IX. Acute valvular disease requiring inpatient as indicated by ANY ONE of the following (41) [ ]a) Acute valvular regurgitation (42) [ ]b) Noninfectious valvulitis (43) [ ]c) Obstructive valve thrombosis [ ]d) Paravalvular leak [ ]e) Other significant valvular disorder remaining after emergency or observation level of care (as appropriate) [ ]X. Pericardial disease requiring inpatient treatment as indicated by ANY ONE of the following (33)(34)(35)(36)(37) [ ]a) Suspected tamponade (38)(39)(40) [ ]b) Hemopericardium [ ]c) Other significant pericardial disorder remaining after emergency or observation level of care (as appropriate) [ ] XI. Cardiac ischemia beyond scope of emergency and observation care. [ ] XII. Hypertension requiring inpatient treatment as indicated by ANY ONE of the following (6)(7)(8) [ ]a) SBP greater than 220 mm Hg or DBP greater than 120 mmHg despite treatment [ ]b) SBP greater than 140 mm Hg or DBP greater than 100 mm Hg with evidence of acute end organ damage as indicated by ANY ONE of the following [ ] i) Altered mental status [ ] ii) Acute renal failure as indicated by new onset of ANY ONE of the following (9)(10)(11)(12)(13) [ ]1) 3-fold rise in serum creatinine from baseline [ ]2) Serum creatinine greater than 4 mg/dL ( 354 micromoles/L) with acute rise greater than 0.5 mg/dL (44.2 micromoles/L) [ ]3) Reduction of more than 75% in estimated glomerular filtration rate from baseline [ ]4) Estimated glomerular filtration rate less than 35 mL/min/1.73m2 (0.59 mL/sec/1.73m2) in child up to 18 years of age [ ]5) Cessation of urine output indicated by ALL of the following [ ]A. Adequate volume status [ ]B. Inadequate urine output as indicated by ANY ONE of the following [ ]a. Urine output less than 0.3 mL/kg/hr for 24 hours [ ]b. Anuria (urine output less than 0.1 mL/kg/hr) for 12 hours [ ] iii) Aortic dissection [ ] iv) Myocardial Ischemia [ ] v) Left ventricular heart failure [ ]vi) Retinal Hemorrhage [ ]vii) Other significant finding [ ]c) Hypertension in child requiring inpatient treatment as indicated by ALL of the following(14)(15)(16) [ ] i) Outpatient treatment not effective, not available, or not appropriate [ ]ii) SBP or DBP greater than 95th percentile for age [ ]iii) Evidence of acute end organ damage as indicated by ANY ONE of the following [ ]1) Altered mental status [ ]2) Acute renal failure as indicated by new onset of ANY ONE of the following(9)(10)(11)(12)(13) [ ]A. 3-fold rise in serum creatinine from baseline [ ]B. Serum creatinine greater than 4 mg/dL (354 micromoles/L) with acute rise greater than 0.5 mg/dL (44.2 micromoles/L) [ ]C. Reduction of more than 75% in estimated glomerular filtration rate from baseline [ ]D. Estimated glomerular filtration rate less than 35 mL/min/1.73m2 (0.59 mL/sec/1.73m2) in child up to 18 years of age [ ]E. Cessation of urine output indicated by ALL of the following [ ]a. Adequate volume status [ ]b. Inadequate urine output as indicated by ANY ONE of the following [ ]i) Urine output less than 0.3 mL/kg/hr for 24 hours [ ]ii) Anuria ( urine output less than 0.1 mL/kg/hr) for 12 hours [ ]3) Severe headache [ ]4) Visual disturbance [ ]5) Retinal hemorrhage [ ]6) Other significant finding [ ]XIII. Complications of transplanted heart indicated by ANY ONE of the following(61): [ ]a) Acute graft rejection requiring inpatient management (eg, intravenous immunosuppression)(62)(63) [ ]b) Acute graft heart failure indicated by ANY ONE of the following(64): [ ]i) Hemodynamic instability [ ]ii) Cardiac arrhythmias of immediate concern [ ]iii) Pulmonary edema that is very severe (eg, mechanical ventilation needed, imminent or likely, need for 100% oxygen to keep oxygen saturation above 90%) [ ]iv) Pulmonary edema that is persistent as indicated by ALL of the following: [ ]1) New need for oxygen therapy to keep oxygen saturation above 90% (or increased FiO2 need from baseline) [ ]2) Has not improved sufficiently with emergency department or observation care IV diuretics or other heart failure treatments[E] [ ]v) Altered mental status that is severe or persistent [ ]vi) Increased creatinine (new on laboratory test) with reduction of more than 50% in estimated glomerular filtration rate from baseline [ ]vii) Progressively (ongoing) rising creatinine (known from past laboratory test) with reduction of more than 25% in estimated glomerular filtration rate from baseline [ ]viii) Acute renal failure [ ]ix) Acute peripheral ischemia (eg, examination shows pulseless, cool, mottled, or cyanotic extremity) [ ]x) Pulmonary artery catheter monitoring needed [ ]xi) Other sign or symptom of heart failure requiring inpatient treatment (ie, too severe or not responsive to outpatient and observation care treatment) [ ]c) Infection requiring inpatient management (eg, Hemodynamic instability, need for intravenous antimicrobial treatment)(66)(67)(68)(69)(70) [ ]d) Cardiac allograft vasculopathy requiring inpatient management ( eg evidence of cardiac ischemia)(71) [ ]e) Other complication of transplanted heart (eg, stroke, severe pulmonary hypertension, severe valvular dysfunction) requiring inpatient management(72) The original [facility] content created by [facility] has been revised. The portions of the content which have been revised are identified through the use of italic text or in bold, and [facility] has neither reviewed nor approved the modified material. All other unmodified content is copyright [facility]. Please see references footnoted in the original [facility] edition 2016 Admission Criteria Met: Yes
[2017-03-17] MEDS ORDERED: ZOFRAN IV PRN (20:54)
--- NOTE | 2017-03-17 22:26 | Event Note ---
Date: 03/17/17 See H/p in reports Chest pain-Recent stress test negative around mar 06 2017 Pericarditis NICM-EF 20 to 25 percent HTN Anticoagulation Depression Muscle spasms
[2017-03-17] MEDS ORDERED: MILK OF MAGNESIA PO PRN (22:38)
[2017-03-17] MEDS ORDERED: TYLENOL PO PRN (22:38)
[2017-03-17] MEDS ORDERED: DULCOLAX PR PRN (22:38)
[2017-03-17] MEDS ORDERED: AMBIEN PO PRN (22:38)
[2017-03-17] MEDS ORDERED: SODIUM CHLORIDE FLUSH SYRINGE 10 ML IV PRN (22:54)
[2017-03-17] MEDS ORDERED: COUMADIN PO SCH (23:00)
[2017-03-17] MEDS: PERCOCET 5/325 PO PRN (23:22)
--- NOTE | 2017-03-18 01:29 | History and Physical Report ---
CHIEF COMPLAINT: Left-sided chest pain. HISTORY OF PRESENT ILLNESS: A 57-year-old female with multiple medical problems including atrial fibrillation, congestive heart failure, hypertension with LV ejection fraction of 20-25% and recent discharge about a week ago for same complaint and with a stress test being negative, comes in for left-sided chest pain, which was radiating to the left shoulder and left arm. The patient was diagnosed with pericarditis and pulmonary nodule about a week ago. The patient was not taking NSAIDs because she states she is ALLERGIC TO NSAIDS. Continues to have repeat chest pain. NETTA score is 0. PAST MEDICAL HISTORY: As mentioned, hypertension, congestive heart failure, atrial fibrillation, depression. Also, pulmonary nodule for which she was supposed to follow with the PCP. She was admitted to the hospitalist service last visit, was discharged on 03/06/2017. PAST SURGICAL HISTORY: Cholecystectomy, gastric bypass, oophorectomy, hysterectomy, skin grafts and exploratory laparotomy. SOCIAL HISTORY: Smokes over two thirds pack everyday. No substance abuse. No IV drugs. FAMILY HISTORY: Significant for hypertension. FEROZ on 03/2015 shows ejection fraction of 20-25%, with left ventricular diastolic filling pressures being restrictive. This is 2 years ago. The patient also has nonischemic cardiomyopathy. CURRENT MEDICATIONS: Digoxin 0.25 daily, Lasix 40 mg p.o. daily, losartan 50 mg p.o. daily, metoprolol 25 mg p.o. b.i.d., potassium 20 mEq p.o. daily, Coumadin 5 mg 4 times a week and 7.5 mg 3 times a week, Robaxin 500 mg twice a day, fluoxetine 40 mg once a day, Wellbutrin 150 mg p.o. daily. REVIEW OF SYSTEMS: CONSTITUTIONAL: No fever, no chills. No weight loss, no weight gain. HEENT: Unremarkable. Pupils equal and reactive. NECK: Supple, no lymphadenopathy, no thyromegaly. LUNGS: Clear to auscultation and percussion. Good air entry. CARDIOVASCULAR: S1, S2 heard, irregularly irregular heart rate. Apical impulse in left fifth intercostal space and midclavicular line. ABDOMEN: Soft and benign. No hepatosplenomegaly. No guarding, no rigidity. Hernial orifices are normal. EXTREMITIES: Good pedal pulses. No pedal edema. NEUROLOGIC: No focal deficits. HEMATOLOGIC/LYMPHATIC: No easy bruising. PHYSICAL EXAMINATION: GENERAL: On examination, middle-aged female, cooperative during examination. Temperature is 98.2, pulse is 109, respiratory rate is 20, blood pressure is 177/114. A repeat was 129/107, saturation 99%. HEENT: Unremarkable. Pupils equal and reactive. NECK: Supple, no lymphadenopathy, no thyromegaly. LUNGS: Clear to auscultation and percussion. Good air entry. CVS: S1, S2 heard. No gallop, no murmur, no rub. Apical impulse in left fifth intercostal space and midclavicular line. Irregular rate, irregular heart rate. ABDOMEN: Soft and benign. No hepatosplenomegaly. No guarding, no rigidity. Hernial orifices are normal. EXTREMITIES: Good pedal pulses. No pedal edema. CENTRAL NERVOUS SYSTEM: Alert and oriented x 4. Nonfocal exam. SKIN: Normal. LABORATORY DATA: White count is 8100, H and H is 12.1 and 37.6, platelet count is 318,000. Electrolytes are normal. Troponin is normal. DIAGNOSTIC DATA: EKG shows, atrial fibrillation, heart rate in the 90s, irregularly irregular. No evidence of acute ischemia. CT of the chest, no acute problems. ASSESSMENT AND PLAN: 1. Chest pain, nonspecific, possible continuation of pericarditis. The patient had a stress test recently. Did not order a stress test. Cardiology evaluation requested. 2. Cardiomyopathy. The patient has ejection fraction of 20-25%. Echocardiogram did not order. Lasix to be continued along with potassium. 3. Hypertension. Continue losartan 50 mg p.o. daily. 4. Anticoagulation for atrial fibrillation, continue Coumadin 5 mg alternating with 7.5 mg. 5. Muscle spasms. Continue with Robaxin 500 b.i.d. 6. Depression. Continue fluoxetine 40 mg p.o. daily. 7. Deep venous thrombosis prophylaxis. The patient already on Coumadin. Protime INR is 1.3, subtherapeutic. Lovenox ordered. JOB# [id number] VSM/NTS
[2017-03-18 02:06] LABS: Creatine Kinase MB 1.3 ng/mL (0.0-4.0)
[2017-03-18 02:08] LABS: Creatine Kinase MB 1.3 ng/mL (0.0-4.0)
[2017-03-18 02:10] LABS: Creatine Kinase 98 units/L (30-135); Creatine Kinase 99 units/L (30-135)
[2017-03-18] MEDS: PERCOCET 5/325 PO PRN (08:02)
[2017-03-18] MEDS: COZAAR PO SCH (09:26)
[2017-03-18] MEDS: LASIX PO SCH (09:27)
[2017-03-18] MEDS: LOPRESSOR PO SCH ×2 (09:27→21:49)
[2017-03-18] MEDS: K-DUR PO SCH (09:27)
[2017-03-18] MEDS: WELLBUTRIN SR PO SCH (09:27)
[2017-03-18] MEDS: PEPCID PO SCH ×2 (09:27→21:48)
[2017-03-18] MEDS: PROzac PO SCH (09:28)
[2017-03-18] MEDS: ROBAXIN PO SCH ×2 (09:30→21:48)
[2017-03-18] MEDS ORDERED: COUMADIN PO SCH ×2 (10:00→17:00)
[2017-03-18] MEDS ORDERED: NON-FORMULARY (Fluoxetine Hcl [Prozac] 40 MG) PO SCH (10:00)
[2017-03-18] MEDS ORDERED: NON-FORMULARY (Potassium Chloride [Potassium Chloride] 20 MEQ) PO SCH (10:00)
[2017-03-18 10:30] LABS: Basophils % (Auto) 0.8 % (0.0-1.8); Eosinophils % (Auto) 1.5 % (0.0-4.3); Hematocrit 35.8 % (30.3-42.9); Hemoglobin 11.4 gm/dl (10.1-14.3); Mean Corpuscular HGB Conc 32 % (30-34); Mean Corpuscular Volume 78 fl (79-97); Platelet Count 310 K/mm3 (140-440); Red Blood Count 4.62 M/mm3 (3.65-5.03); White Blood Count 5.8 K/mm3 (4.5-11.0)
[2017-03-18 10:58] LABS: Creatine Kinase 88 units/L (30-135); Creatine Kinase MB 1.3 ng/mL (0.0-4.0)
[2017-03-18 11:03] LABS: Mean Corpuscular Hemoglobin 25 pg (28-32)
--- NOTE | 2017-03-18 11:30 | Consultation ---
History of Present Illness Consult date: 03/18/17 Consult reason: chest pain History of present illness: 57yr old woman with history of nonischemic cadiomyopathy EF 20-25%, atrial fibrillation status post cardioversion 2 years ago and is on warfarin for anticoagulation. Patient has been lost to outpatient cardiac follow ups. Latest workup workup was done 2 weeks ago. She has a persantine stress thallium that reports no ischemia. She presents to the ED with complaints of neck and shoulder pain. Patient reports symptoms ongoing for 10 days with intermittent back pain. She denies chest pain and shortness of breath. Her ECG shows atrial fibrillation with a well controlled ventricular rate. INR 1.17 on presentation. Cardiology consultation requested. Medications and Allergies Allergies Allergy/AdvReac Type Severity Reaction Status Date / Time NSAIDS (Non-Steroidal AdvReac Unknown Verified 09/15/16 14:36 Anti-Inflamma Home Medications Medication Instructions Recorded Confirmed Last Taken Type Digoxin [Lanoxin] 0.25 mg PO DAILY 09/24/16 03/17/17 03/17/17 History Furosemide [Lasix TAB] 40 mg PO QDAY 09/24/16 03/17/17 03/17/17 History Losartan [Cozaar] 50 mg PO QDAY 09/24/16 03/17/17 03/17/17 History Metoprolol [Lopressor TAB] 25 mg PO BID 09/24/16 03/17/17 03/17/17 History Potassium Chloride 20 meq PO QDAY 09/24/16 03/17/17 03/17/17 History Warfarin [Coumadin] 5 mg PO 4XW 09/24/16 03/17/17 03/16/17 History Warfarin [Coumadin] 7.5 mg PO 3XW 09/24/16 03/17/17 03/15/17 History methOCARBAMOL [Robaxin TAB] 500 mg PO BID #14 tab 03/06/17 03/17/17 03/17/17 Rx FLUoxetine HCL [PROzac] 40 mg PO QDAY 03/17/17 03/17/17 03/17/17 History buPROPion SR [Wellbutrin Sr] 150 mg PO QAM 03/17/17 03/17/17 03/17/17 History Active Meds: Active Medications Acetaminophen (Tylenol) 650 mg PO Q4H PRN PRN Reason: Pain MILD(1-3)/Fever >100.5/JIMÉNEZ Bisacodyl (Dulcolax) 10 mg [place] QDAY PRN PRN Reason: Constipation unrelieved by MOM Bupropion HCl (Wellbutrin Sr) 150 mg PO QAM [facility] Last Admin: 03/18/17 09:27 Dose: 150 mg Digoxin (Lanoxin) 0.25 mg PO DAILY@1700 [facility] Enoxaparin Sodium (Lovenox) 40 mg SUB-Q QDAY@2200 [facility] Famotidine (Pepcid) 20 mg PO BID [facility] Last Admin: 03/18/17 09:27 Dose: 20 mg Fluoxetine HCl (Prozac) 40 mg PO QDAY [facility] Last Admin: 03/18/17 09:28 Dose: 40 mg Furosemide (Lasix) 40 mg PO QDAY [facility] Last Admin: 03/18/17 09:27 Dose: 40 mg Hydromorphone HCl (Dilaudid) 0.5 mg IV Q3H PRN PRN Reason: Pain , Severe (7-10) Losartan Potassium (Cozaar) 50 mg PO QDAY [facility] Last Admin: 03/18/17 09:26 Dose: 50 mg Magnesium Hydroxide (Milk Of Magnesia) 30 ml PO Q4H PRN PRN Reason: Constipation Methocarbamol (Robaxin) 500 mg PO BID [facility] Last Admin: 03/18/17 09:30 Dose: 500 mg Metoprolol Tartrate (Lopressor) 25 mg PO BID [facility] Last Admin: 03/18/17 09:27 Dose: 25 mg Ondansetron HCl (Zofran) 4 mg IV Q8H PRN PRN Reason: N/V unrelieved by Reglan Oxycodone/Acetaminophen (Percocet 5/325) 1 tab PO Q6H PRN PRN Reason: Pain, Moderate (4-6) Last Admin: 03/18/17 08:02 Dose: 1 tab Potassium Chloride (K-Dur) 20 meq PO QDAY [facility] Last Admin: 03/18/17 09:27 Dose: 20 meq Sodium Chloride (Sodium Chloride Flush Syringe 10 Ml) 10 ml IV PRN PRN PRN Reason: LINE FLUSH Warfarin Sodium (Coumadin) 5 mg PO MoWeFrSa@1700 [facility] PRN Reason: Protocol Warfarin Sodium (Coumadin) 7.5 mg PO SuTuTh@1700 [facility] PRN Reason: Protocol Last Admin: 03/17/17 23:22 Dose: 7.5 mg Zolpidem Tartrate (Ambien) 5 mg PO QHS PRN PRN Reason: Insomnia Physical Examination Vital Signs Temp Pulse Resp BP Pulse Ox 98.2 F 109 H 20 177/114 99 03/17/17 07:45 03/17/17 07:45 03/17/17 07:45 03/17/17 07:45 03/17/17 07:45 General appearance: no acute distress HEENT: Positive: PERRL Neck: Positive: trachea midline Cardiac: Positive: irregularly irregular Results 03/17/17 08:02 03/17/17 08:02 Cardiac Enzymes 03/18/17 03/18/17 Range/Units 01:22 01:22 CK-MB (CK-2) 1.3 1.3 (0.0-4.0) ng/mL CBC 03/18/17 Range/Units 08:26 Wilson # 0.7 (0.0-0.8) K/mm3 Eos # 0.1 (0.0-0.4) K/mm3 Baso # 0.0 (0.0-0.1) K/mm3 Assessment and Plan Neck/Shoulder pain Atrial fibrillation, persistent on warfarin as an outpatient; INR sup-therapeutic on presentation. Hx of NICMP EF 20-25% echo 2014 Noncompliant with outpatient cardiac follow ups.
[2017-03-18 13:12] LABS: Alanine Aminotransferase 61 units/L (7-56); Albumin 4.1 g/dL (3.9-5); Albumin/Globulin Ratio 1.1 %; Alkaline Phosphatase 189 units/L (35-129); BUN/Creatinine Ratio 23.33; Blood Urea Nitrogen 14 mg/dL (7-17); Calcium 9.3 mg/dL (8.4-10.2); Carbon Dioxide 22 mmol/L (22-30); Chloride 97.7 mmol/L (98-107); Glucose 96 mg/dL (65-100); Potassium 4.2 mmol/L (3.6-5.0); Sodium 137 mmol/L (137-145); Total Protein 7.7 g/dL (6.3-8.2)
[2017-03-18 13:27] LABS: Anion Gap 22 mmol/L
--- NOTE | 2017-03-18 16:05 | Progress Note ---
Assessment and Plan Assessment and plan: Patient is a 57-year-old female with past medical history of atrial fibrillation status post cardioversion 2 years ago, congestive heart failure, nonischemic cardiomyopathy with ejection fraction of 20-25% and is on warfarin for anticoagulation. Consult cardiology patient has been less outpatient follow -ups. Had a workup done about 2 weeks ago including a stress test which showed no ischemia. Presented with complaint of chest pain was initially evaluated and felt to be secondary to pericarditis versus costochondritis started on muscle relaxants but has not been taking it. Unfortunately cannot take NSAIDs due to gastritis. * Atypical chest pain evaluated for cervical stenosis per costochondritis * Atrial fibrillation persistent despite cardioversion * Non-ischemic cardiomyopathy EF 25% 2014 * GERD Plan * Cardiology input noted * patient refusing current medical recommendation * Also Subtheraputic in INR although states that she takes medication * continue coumadin * check CT neck * await further input by Cardiology. * Plan discussed with patient. History Interval history: Patient seen and examined this morning reports persistent left-sided substernal pain also noted of the shoulder and the subscapular area in the back. Abdomen with tingling down the left arm. Denies any oxygen or shortness of breath, nausea vomiting or diarrhea or diaphoresis. Reports that this has been ongoing for about a week. Only took 1 muscle relaxant of the prescription given because she does not believe this is pericarditis. Hospitalist Physical - Physical exam Narrative exam: VITAL SIGNS: Reviewed. GENERAL: The patient appeared well nourished and normally developed. Vital signs as documented. HEAD: No signs of head trauma. EYES: Pupils are equal. Extraocular motions intact. EARS: Hearing grossly intact. MOUTH: Oropharynx is normal. NECK: No adenopathy, no JVD. CHEST: Chest with clear breath sounds bilaterally. No wheezes, rales, or rhonchi. CARDIAC: Irregularly irregular rate and rhythm. S1 and S2, without murmurs, gallops, or rubs. VASCULAR: No Edema. Peripheral pulses normal and equal in all extremities. ABDOMEN: Soft, without detectable tenderness. No sign of distention. No rebound or guarding, and no masses palpated. Bowel Sounds normal. MUSCULOSKELETAL: Some reproducible chest wall tenderness but not the specific tenderness the patient was feeling. Good range of motion of all major joints. Extremities without clubbing, cyanosis or edema. NEUROLOGIC EXAM: Alert and oriented x 3. No focal sensory or strength deficits. Speech normal. Follows commands. PSYCHIATRIC: Mood normal. SKIN: No rash or lesions. - Constitutional Vitals: Temp Pulse Resp BP Pulse Ox 98.1 F 73 18 124/64 97 03/18/17 12:00 03/18/17 12:00 03/18/17 12:00 03/18/17 12:00 03/18/17 12:00 General appearance: Present: no acute distress Results - Labs CBC & Chem 7: 03/18/17 08:26 03/18/17 08:33 Labs: Laboratory Last Values WBC 5.8 K/mm3 (4.5-11.0) 03/18/17 08:26 RBC 4.62 M/mm3 (3.65-5.03) 03/18/17 08:26 Hgb 11.4 gm/dl (10.1-14.3) 03/18/17 08:26 Hct 35.8 % (30.3-42.9) 03/18/17 08:26 MCV 78 fl (79-97) L 03/18/17 08:26 MCH 25 pg (28-32) L 03/18/17 08:26 MCHC 32 % (30-34) 03/18/17 08:26 RDW 15.0 % (13.2-15.2) 03/18/17 08:26 Plt Count 310 K/mm3 (140-440) 03/18/17 08:26 Lymph % (Auto) 38.0 % (13.4-35.0) H 03/18/17 08:26 Addison % (Auto) 11.2 % (0.0-7.3) H 03/18/17 08:26 Eos % (Auto) 1.5 % (0.0-4.3) 03/18/17 08:26 Baso % (Auto) 0.8 % (0.0-1.8) 03/18/17 08:26 Lymph # 2.2 K/mm3 (1.2-5.4) 03/18/17 08:26 Addison # 0.7 K/mm3 (0.0-0.8) 03/18/17 08:26 Eos # 0.1 K/mm3 (0.0-0.4) 03/18/17 08:26 Baso # 0.0 K/mm3 (0.0-0.1) 03/18/17 08:26 Seg Neutrophils % 48.5 % (40.0-70.0) 03/18/17 08:26 Seg Neutrophils # 2.8 K/mm3 (1.8-7.7) 03/18/17 08:26 PT 14.8 Sec. (12.2-14.9) 03/17/17 13:48 INR 1.17 (0.87-1.13) H 03/17/17 13:48 APTT 33.8 Sec. (24.2-36.6) 03/17/17 13:48 Sodium 137 mmol/L (137-145) 03/18/17 08:33 Potassium 4.2 mmol/L (3.6-5.0) 03/18/17 08:33 Chloride 97.7 mmol/L (98-107) L 03/18/17 08:33 Carbon Dioxide 22 mmol/L (22-30) D 03/18/17 08:33 Anion Gap 22 mmol/L 03/18/17 08:33 BUN 14 mg/dL (7-17) 03/18/17 08:33 Creatinine 0.6 mg/dL (0.7-1.2) L 03/18/17 08:33 Estimated GFR > 60 ml/min 03/18/17 08:33 BUN/Creatinine Ratio 23.33 % 03/18/17 08:33 Glucose 96 mg/dL (65-100) 03/18/17 08:33 Hemoglobin A1c 5.9 % (4-6) 03/18/17 01:14 Calcium 9.3 mg/dL (8.4-10.2) 03/18/17 08:33 Total Bilirubin 0.30 mg/dL (0.1-1.2) 03/18/17 08:33 Direct Bilirubin < 0.2 mg/dL (0-0.2) 03/17/17 13:48 AST 97 units/L (5-40) H 03/18/17 08:33 ALT 61 units/L (7-56) H 03/18/17 08:33 Alkaline Phosphatase 189 units/L (35-129) H 03/18/17 08:33 Total Creatine Kinase 88 units/L (30-135) 03/18/17 08:26 CK-MB (CK-2) 1.3 ng/mL (0.0-4.0) 03/18/17 08:26 CK-MB (CK-2) Rel Index 1.4 (0-4) 03/18/17 08:26 Troponin T < 0.010 ng/mL (0.00-0.029) 03/18/17 08:26 Total Protein 7.7 g/dL (6.3-8.2) 03/18/17 08:33 Albumin 4.1 g/dL (3.9-5) 03/18/17 08:33 Albumin/Globulin Ratio 1.1 % 03/18/17 08:33 Digoxin 0.5 ng/mL (0.9-2.0) L 03/17/17 15:34 - Imaging and Cardiology EKG: image reviewed (atrial fibrillation) Chest x-ray: image reviewed (no acute pathology noted)
--- NOTE | 2017-03-18 16:56 | Cat Scan Report ---
Cervical spine CT without contrast: Transverse images are obtained from skull base through T1. Coronal and sagittal 2-D reformatted images included. There is no fracture and no subluxation. The bones do appear slightly decreased in overall mineralization. There is moderate narrowing of the C5-6 interspace with mild narrowing at C6-7. Anterior spondylosis is noted between C4 and C6. There is uncal proliferation on the left at C3-4 with mild left foraminal stenosis. There is mild left uncal proliferation at C4-5 and bilateral uncal spurring with mild bilateral foraminal stenoses at C5-6. No swelling identified. Impressions: 1. The primary degenerative disease is located at C5-6 with narrowing of the disc space and bilateral mild foraminal stenoses. 2. Mild degenerative uncal fluctuation at C3-4 and C4-5.
[2017-03-18] MEDS ORDERED: LANOXIN PO SCH (17:00)
[2017-03-18] MEDS: ZOFRAN IV PRN (17:41)
[2017-03-18] MEDS: DILAUDID IV PRN (17:53)
[2017-03-18] MEDS ORDERED: LOVENOX SUB-Q SCH (22:00)
[2017-03-19] MEDS: DILAUDID IV PRN ×3 (00:47→09:19)
[2017-03-19] MEDS: ZOFRAN IV PRN ×2 (00:50→05:04)
[2017-03-19 07:57] LABS: INR 1.37 (0.87-1.13)
--- NOTE | 2017-03-19 08:39 | Discharge Summary ---
Providers - Providers Date of Admission: 03/17/17 15:41 Date of discharge: 03/19/17 Attending physician: ROLY MALCOLM MD 03/17/17 Consult to Cardiac Rehabilitation [CONS] Routine Reason For Exam: Phase I 03/17/17 22:38 Consult to Physician [CONS] Routine Consulting Provider: AALIYAH VALENZUELA Reason For Exam: CHF/Chest pain Place consult to:: [facility] Notified:: JACKIE Was contact made?: Yes If yes, spoke with:: JACKIE Time called:: 08:28 Primary care physician: POTATO CHIP FRIER Hospitalization Reason for admission: chest pain Condition: Stable Hospital course: Patient is a 57-year-old female with past medical history of atrial fibrillation status post cardioversion 2 years ago, congestive heart failure, nonischemic cardiomyopathy with ejection fraction of 20-25% and is on warfarin for anticoagulation. Consult cardiology patient has been less outpatient follow -ups. Had a workup done about 2 weeks ago including a stress test which showed no ischemia. Presented with complaint of chest pain was initially evaluated and felt to be secondary to pericarditis versus costochondritis started on muscle relaxants but has not been taking it. Unfortunately cannot take NSAIDs due to gastritis. I discussed with cardiology and on reviewing the patient's record it appears patient has been lost to follow-up she claims this is secondary to lack of insurance. Although she states that she takes warfarin diligently she states that it is likely because she's been eating lots of liver which she claims contains vitamin K is why her INR is low. She states that her primary care physician had noted dyspnea did not make any changes. Considering the fact that she has had multiple changes in heR bladder in the past but decided not to make any further changes at this time I did discuss with her the need for high INR subtherapeutic and the risk of developing stroke from atrial fibrillation if this is not the case. The patient verbalized understanding. She follows at [facility]. 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 She was recently diagnosed with pericarditis and I did inform her that this could be last 6 weeks prior to complete resolution. Patient have to agree to be discharged came back her request and multiple tests were done in house because she does not have insurance. I did advise her that this test did not have any need to be done in-house and that a proper outpatient follow-up will be appropriate the patient verbalized understanding that she'll be discharged on Ultram. Condition is stable * Atypical chest pain secondary to costochondritis * Cervical stenosis * Atrial fibrillation persistent despite cardioversion * Non-ischemic cardiomyopathy EF 25% 2014 * GERD Disposition: DISCHARGED TO HOME OR SELFCARE Time spent for discharge: 35 mins Core Measure Documentation - Palliative Care Palliative Care/ Comfort Measures: Not Applicable - Core Measures Any of the following diagnoses?: none - VTE Discharge Requirements Deep Vein Thrombosis/Pulmonary Embolism Present on Admission: No Exam - Physical Exam Narrative exam: VITAL SIGNS: Reviewed. GENERAL: The patient appeared well nourished and normally developed. Vital signs as documented. HEAD: No signs of head trauma. EYES: Pupils are equal. Extraocular motions intact. EARS: Hearing grossly intact. MOUTH: Oropharynx is normal. NECK: No adenopathy, no JVD. CHEST: Chest with clear breath sounds bilaterally. No wheezes, rales, or rhonchi. CARDIAC: Irregularly irregular rate and rhythm. S1 and S2, without murmurs, gallops, or rubs. VASCULAR: No Edema. Peripheral pulses normal and equal in all extremities. ABDOMEN: Soft, without detectable tenderness. No sign of distention. No rebound or guarding, and no masses palpated. Bowel Sounds normal. MUSCULOSKELETAL: Some reproducible chest wall tenderness but not the specific tenderness the patient was feeling. Good range of motion of all major joints. Extremities without clubbing, cyanosis or edema. NEUROLOGIC EXAM: Alert and oriented x 3. No focal sensory or strength deficits. Speech normal. Follows commands. PSYCHIATRIC: Mood normal. SKIN: No rash or lesions. - Constitutional Vitals: Temp Pulse Resp BP Pulse Ox 97.5 F L 66 20 115/77 98 03/19/17 05:00 03/19/17 05:00 03/19/17 05:00 03/19/17 05:00 03/19/17 05:00 Plan Activity: advance as tolerated, fall precautions Diet: low fat Special Instructions: record daily weights, record daily BP diary Additional Instructions: follow with ortho for cervical stenosis Follow up with: DWIGHT NY MD [Primary Care Provider] - 3-5 Days AALIYAH VALENZUELA MD [Staff Physician] - 7 Days ANUJ SALAZAR MD [Staff Physician] - 7 Days Forms: Warfarin Discharge Instruction Prescriptions: traMADol [Ultram] 50 mg PO Q6HR PRN #10 tablet PRN Reason: Pain
[2017-03-19] MEDS: COZAAR PO SCH (09:15)
[2017-03-19] MEDS: K-DUR PO SCH (09:15)
[2017-03-19] MEDS: WELLBUTRIN SR PO SCH (09:15)
[2017-03-19] MEDS: LASIX PO SCH (09:15)
[2017-03-19] MEDS: PROzac PO SCH (09:15)
[2017-03-19] MEDS: PEPCID PO SCH (09:15)
[2017-03-19] MEDS: LOPRESSOR PO SCH (09:15)
[2017-03-19] MEDS: ROBAXIN PO SCH (09:15)
[2017-03-19 10:20] VITALS: BP 122/68
--- NOTE | 2017-03-19 15:05 | Progress Note ---
Assessment and Plan Neck/Shoulder pain Atrial fibrillation, persistent rate controlled on warfarin as an outpatient; INR sup-therapeutic on presentation. Hx of NICMP EF 20-25% echo 2014 No ischemia on MPI 03/2017 Noncompliant with outpatient cardiac follow ups Recommendations: Medical therapy for her afib and nonischemic cardiomyopathy. Continue warfarin for persistent atrial fibrillation. Target INR 2-3. Otherwise, conservative cardiac management. Subjective Date of service: 03/19/17 Interval history: Patient denies chest pain and shortness of breath. Objective Vital Signs Temp Pulse Pulse Pulse Resp BP Pulse Ox 03/19/17 10:19 98.7 F 77 16 122/68 97 03/19/17 05:00 97.5 F L 66 20 115/77 98 03/19/17 03:09 81 03/19/17 00:00 97.8 F 81 18 124/72 97 03/18/17 19:00 97.9 F 84 20 112/78 96 03/18/17 17:39 85 03/18/17 17:34 98.3 F 88 24 140/82 95 - Physical Examination General: No Apparent Distress HEENT: Positive: PERRL Neck: Positive: trachea midline Cardiac: Positive: Reg Rate and Rhythm Lungs: Positive: Decreased Breath Sounds Neuro: Positive: Grossly Intact - Labs and Meds Coagulation 03/19/17 Range/Units 06:24 PT 16.8 H (12.2-14.9) Sec. INR 1.37 H (0.87-1.13) - Imaging and Cardiology EKG: image reviewed (atrial fibrillation)
== END 2017-03-19 14:33 | disposition home or self-care (01) | DRG 206 ==
LOC: ED 07:42 → 4A 15:41
PROVIDERS: ADMIT Internal Medicine; ATTEND Internal Medicine
DX: M94.0 Chondrocostal junction syndrome [Tietze] (principal); I42.9 Cardiomyopathy, unspecified; I48.1 Persistent atrial fibrillation; I31.9 Disease of pericardium, unspecified; I11.0 Hypertensive heart disease with heart failure; M25.519 Pain in unspecified shoulder; F17.210 Nicotine dependence, cigarettes, uncomplicated; I50.9 Heart failure, unspecified; F32.9 Major depressive disorder, single episode, unspecified; M62.838 Other muscle spasm; M54.2 Cervicalgia; R07.89 Other chest pain; N88.2 Stricture and stenosis of cervix uteri; K21.9 Gastro-esophageal reflux disease without esophagitis; Z91.14 Patient's other noncompliance with medication regimen; Z88.6 Allergy status to analgesic agent; Z79.01 Long term (current) use of anticoagulants; Z90.49 Acquired absence of other specified parts of digestive tract; Z90.710 Acquired absence of both cervix and uterus; Z90.721 Acquired absence of ovaries, unilateral; Z82.49 Family history of ischemic heart disease and other diseases of the circulatory system
CPT/HCPCS: 36415; 70450; 71010; 72125; 80048; 80053; 80074; 80162; 82550; 82553; 83036; 84484; 85025; 85610; 85730; 93005; 93010; 96372; J1170; J1650; J2405

== ENCOUNTER 2017-04-19 10:04 | Inpatient (IN) | payer SELFPAY ==
[2017-04-19 11:10] LABS: Basophils % (Auto) 0.4 % (0.0-1.8); Eosinophils % (Auto) 1.9 % (0.0-4.3); Hematocrit 36.8 % (30.3-42.9); Hemoglobin 11.8 gm/dl (10.1-14.3); Mean Corpuscular HGB Conc 32 % (30-34); Mean Corpuscular Volume 75 fl (79-97); Platelet Count 312 K/mm3 (140-440); Red Blood Count 4.92 M/mm3 (3.65-5.03); Red Cell Distribution Width 15.3 % (13.2-15.2); White Blood Count 6.6 K/mm3 (4.5-11.0)
[2017-04-19 11:12] LABS: Mean Corpuscular Hemoglobin 24 pg (28-32)
[2017-04-19 12:05] LABS: Anion Gap 16 mmol/L; BUN/Creatinine Ratio 18.33; Blood Urea Nitrogen 11 mg/dL (7-17); Calcium 9.1 mg/dL (8.4-10.2); Carbon Dioxide 28 mmol/L (22-30); Chloride 98.1 mmol/L (98-107); Glucose 96 mg/dL (65-100); Potassium 3.7 mmol/L (3.6-5.0); Sodium 138 mmol/L (137-145)
[2017-04-19] MEDS ORDERED: MORPHINE IV ONE (13:42)
[2017-04-19] MEDS ORDERED: ZOFRAN IV ONE (13:42)
[2017-04-19] MEDS ORDERED: NITRO-BID 2% TP ONE (13:42)
--- NOTE | 2017-04-19 13:52 | Emergency Department Report ---
HPI - General Chief Complaint: Chest Pain Time Seen by Provider: 04/19/17 13:33 - HPI HPI: Room 17 The patient is a 57-year-old female presenting with a chief complaint of chest pain. The patient states yesterday she had nausea all day. Patient states she awakened this morning at 05:00 with substernal chest pain feeling as though something squeezing her chest. Patient states the chest pain has been intermittent lasting approximately 4-5 minutes with each episode. The patient admits to shortness of breath, diaphoresis and nausea without vomiting with her chest pain. Patient currently gives her pain a score of 6/10. The patient last had a stress test approximately 1.5 months ago. The patient states she's never had a cardiac catheterization Location: Chest Duration: Intermittent since 05:00 Quality: Squeezing Severity: 6/10 Modifying factors: [see above] Context: [see above] Mode of transportation: [not driving] ED Past Medical Hx - Past Medical History Previous Medical History?: Yes Hx Hypertension: Yes Additional medical history: Atrial fibrillation - Surgical History Past Surgical History?: No Hx Cholecystectomy: Yes Additional Surgical History: gastric by-pass, oophorectomy, hysterectomy, skin grafts, exploratory laparotomy - Family History Family history: no significant - Social History Smoking Status: Current Some Day Smoker (2 cigarettes daily) Substance Use Type: None - Medications Home Medications: Home Medications Medication Instructions Recorded Confirmed Last Taken Type Digoxin [Lanoxin] 0.25 mg PO DAILY 09/24/16 03/17/17 03/17/17 History Furosemide [Lasix TAB] 40 mg PO QDAY 09/24/16 03/17/17 03/17/17 History Losartan [Cozaar] 50 mg PO QDAY 09/24/16 03/17/17 03/17/17 History Metoprolol [Lopressor TAB] 25 mg PO BID 09/24/16 03/17/17 03/17/17 History Potassium Chloride 20 meq PO QDAY 09/24/16 03/17/17 03/17/17 History Warfarin [Coumadin] 5 mg PO 4XW 09/24/16 03/17/17 03/16/17 History Warfarin [Coumadin] 7.5 mg PO 3XW 09/24/16 03/17/17 03/15/17 History methOCARBAMOL [Robaxin TAB] 500 mg PO BID #14 tab 03/06/17 03/17/17 03/17/17 Rx FLUoxetine HCL [PROzac] 40 mg PO QDAY 03/17/17 03/17/17 03/17/17 History buPROPion SR [Wellbutrin SR] 150 mg PO QAM 03/17/17 03/17/17 03/17/17 History traMADol [Ultram] 50 mg PO Q6HR PRN #10 tablet 03/19/17 Unknown Rx ED Review of Systems ROS: Stated complaint: CHEST PAIN Other details as noted in HPI Comment: All other systems reviewed and negative Constitutional: diaphoresis Eyes: denies: eye pain, eye discharge, vision change ENT: denies: ear pain, throat pain Respiratory: shortness of breath Cardiovascular: chest pain Endocrine: no symptoms reported Gastrointestinal: nausea. denies: vomiting Genitourinary: denies: urgency, dysuria, discharge Musculoskeletal: denies: back pain, joint swelling, arthralgia Skin: as per HPI Neurological: denies: headache, weakness, paresthesias Psychiatric: denies: anxiety, depression Hematological/Lymphatic: denies: easy bleeding, easy bruising Physical Exam - Physical Exam Vital Signs: Vital Signs 04/19/17 04/19/17 04/19/17 10:12 13:22 13:35 Temperature 97.9 F Pulse Rate 63 67 Respiratory 16 12 18 Rate Blood Pressure 131/73 O2 Sat by Pulse 100 98 Oximetry Physical Exam: GENERAL: The patient is well-developed well-nourished female lying on stretcher appearing to be in mild discomfort. [] HEENT: Normocephalic. Atraumatic. Extraocular motions are intact. Patient has moist mucous membranes. NECK: Supple. Trachea midline CHEST/LUNGS: Clear to auscultation. There is no respiratory distress noted. HEART/CARDIOVASCULAR: Regular. There is no tachycardia. There is no gallop rub or murmur. ABDOMEN: Abdomen is soft, nontender. Patient has normal bowel sounds. There is no abdominal distention. SKIN: There is no rash. There is no edema. There is no diaphoresis. NEURO: The patient is awake, alert, and oriented. The patient is cooperative. The patient has normal speech MUSCULOSKELETAL: There is no evidence of acute injury. ED Course Vital Signs 04/19/17 04/19/17 04/19/17 10:12 13:22 13:35 Temperature 97.9 F Pulse Rate 63 67 Respiratory 16 12 18 Rate Blood Pressure 131/73 O2 Sat by Pulse 100 98 Oximetry ED Medical Decision Making - Lab Data Result diagrams: 04/19/17 10:21 04/19/17 11:30 - EKG Data -: EKG Interpreted by Me Rate: normal - EKG Data When compared to previous EKG there are: changes noted Interpretation: nonspecific ST-T wave janelle (biphasic T waves in leads V4, V5, V6 when compared to previous EKG dated 03/18/2017) - Radiology Data Radiology results: image reviewed (chest x-ray) interpreted by me: Chest x-ray-no focal infiltrates, no pneumothorax - Differential Diagnosis ACS, nonischemic cardiomyopathy, GERD, pericarditis Critical care attestation.: If time is entered above; I have spent that time in minutes in the direct care of this critically ill patient, excluding procedure time. ED Disposition Clinical Impression: Chest pain Disposition: DC-09 OP ADMIT IP TO THIS HOSP Is pt being admited?: Yes Does the pt Need Aspirin: No Condition: Fair Instructions: Chest Pain (ED) Referrals: AALIYAH VALENZUELA MD [Primary Care Provider] - 3-5 Days Time of Disposition: 14:11 (hospitalist paged)
--- NOTE | 2017-04-19 14:15 | XRay Report ---
AP CHEST: HISTORY: chest pain AP view of the chest demonstrates a normal mediastinal and cardiac contour with clear lungs and normal bony and soft tissue structures. IMPRESSION: Unremarkable AP chest.
[2017-04-19 14:27] LABS: INR 2.11 (0.87-1.13)
[2017-04-19 14:28] LABS: Partial Thromboplastin Time 37.5 Sec. (24.2-36.6)
[2017-04-19] MEDS ORDERED: SODIUM CHLORIDE FLUSH SYRINGE 10 ML IV PRN (14:57)
[2017-04-19] MEDS ORDERED: MILK OF MAGNESIA PO PRN (14:57)
[2017-04-19] MEDS ORDERED: TYLENOL PO PRN (14:57)
[2017-04-19] MEDS ORDERED: DULCOLAX PR PRN (14:57)
--- NOTE | 2017-04-19 15:09 | History and Physical Report ---
History of Present Illness Date of examination: 04/19/17 Date of admission: 04/19/17 Chief complaint: Chest Pains History of present illness: A 57-year-old female presented to the ED via private vehicle from home with complaint of chest pain. Patient reported her symptoms started at 5 AM this morning that woke her up. She was diaphoretic, strong mid-sternum tightness, pressure and pain of 6 of 10 on scale of 0/10. Patient also reported she had nausea throughout the day yesterday. Patient stated she was discharged from the hospital about 2 weeks ago for pericarditis, and she's not on steroids. She also follows [facility], Dr. Luna. Patient denied fever, chest chills, syncopal episodes, falls, abdominal pain. Patient's past medical history CHF, A. fib on Coumadin, hypertension, GI bleed, gastric bypass 2002, cholecystectomy 1997, exploratory laparoscopy with lysis of lesion, smoker. Past History Past Medical History: atrial fib, COPD, heart failure, hypertension, other ( Rehman, PTSD, Anxiety disorder, Depression) Past Surgical History: cholecystectomy, Other (Gastric Bypass 2002, EX-LAP with lysis of lesion, Skin graft) Social history: , lives with family, smoking (2-3 cigarettes per day), full code. denies: alcohol abuse, prescription drug abuse Family history: cancer (bladder), diabetes, hypertension Medications and Allergies Allergies Allergy/AdvReac Type Severity Reaction Status Date / Time NSAIDS (Non-Steroidal AdvReac Unknown Verified 09/15/16 14:36 Anti-Inflamma Home Medications Medication Instructions Recorded Confirmed Last Taken Type Digoxin [Lanoxin] 0.25 mg PO DAILY 09/24/16 03/17/17 03/17/17 History Furosemide [Lasix TAB] 40 mg PO QDAY 09/24/16 03/17/17 03/17/17 History Losartan [Cozaar] 50 mg PO QDAY 09/24/16 03/17/17 03/17/17 History Metoprolol [Lopressor TAB] 25 mg PO BID 09/24/16 03/17/17 03/17/17 History Potassium Chloride 20 meq PO QDAY 09/24/16 03/17/17 03/17/17 History Warfarin [Coumadin] 5 mg PO 4XW 09/24/16 03/17/17 03/16/17 History Warfarin [Coumadin] 7.5 mg PO 3XW 09/24/16 03/17/17 03/15/17 History methOCARBAMOL [Robaxin TAB] 500 mg PO BID #14 tab 03/06/17 03/17/17 03/17/17 Rx FLUoxetine HCL [PROzac] 40 mg PO QDAY 03/17/17 03/17/17 03/17/17 History buPROPion SR [Wellbutrin SR] 150 mg PO QAM 03/17/17 03/17/17 03/17/17 History traMADol [Ultram] 50 mg PO Q6HR PRN #10 tablet 03/19/17 Unknown Rx Active Meds: Active Medications Acetaminophen (Tylenol) 650 mg PO Q4H PRN PRN Reason: Pain MILD(1-3)/Fever >100.5/JIMÉNEZ Bisacodyl (Dulcolax) 10 mg ID QDAY PRN PRN Reason: Constipation unrelieved by MOM Magnesium Hydroxide (Milk Of Magnesia) 30 ml PO Q4H PRN PRN Reason: Constipation Ondansetron HCl (Zofran) 4 mg IV Q6H PRN PRN Reason: Nausea And Vomiting Sodium Chloride (Sodium Chloride Flush Syringe 10 Ml) 10 ml IV PRN PRN PRN Reason: LINE FLUSH Review of Systems Constitutional: no weight gain, no fever, no chills Ears, nose, mouth and throat: no nasal congestion, no nasal discharge, no epistaxis Breasts: normal Cardiovascular: chest pain, no palpitations, no shortness of breath Respiratory: no cough with sputum, no shortness of breath, no dyspnea on exertion Rectal: no incontinence Musculoskeletal: arm numbness/tingling (left arm), no low back pain Integumentary: no rash, no sores, no wounds Neurological: no head injury, no seizures, no syncope Psychiatric: anxiety, depression, no suicidal ideation Endocrine: no fatigue Exam - Constitutional Vitals: Temp Pulse Resp BP Pulse Ox 98.6 F 80 18 132/82 98 04/19/17 13:57 04/19/17 14:12 04/19/17 13:57 04/19/17 14:12 04/19/17 13:57 General appearance: Present: no acute distress, well-nourished - EENT Eyes: Present: PERRL ENT: hearing intact, clear oral mucosa - Neck Neck: Present: supple, normal ROM - Respiratory Respiratory effort: normal Respiratory: bilateral: CTA - Cardiovascular Rhythm: regular Heart Sounds: Present: S1 & S2. Absent: rub, click - Extremities Extremities: pulses symmetrical, No edema - Abdominal General gastrointestinal: Present: soft, non-tender, non-distended, normal bowel sounds - Integumentary Integumentary: Present: clear, warm, dry - Musculoskeletal Musculoskeletal: gait normal, strength equal bilaterally - Psychiatric Psychiatric: appropriate mood/affect, intact judgment & insight - Neurologic Neurologic: CNII-XII intact, moves all extremities - Allied Health Allied health notes reviewed: nursing Results - Labs CBC & Chem 7: 04/19/17 10:21 04/19/17 11:30 Labs: Laboratory Last Values WBC 6.6 K/mm3 (4.5-11.0) 04/19/17 10:21 RBC 4.92 M/mm3 (3.65-5.03) 04/19/17 10:21 Hgb 11.8 gm/dl (10.1-14.3) 04/19/17 10:21 Hct 36.8 % (30.3-42.9) 04/19/17 10:21 MCV 75 fl (79-97) L 04/19/17 10:21 MCH 24 pg (28-32) L 04/19/17 10:21 MCHC 32 % (30-34) 04/19/17 10:21 RDW 15.3 % (13.2-15.2) H 04/19/17 10:21 Plt Count 312 K/mm3 (140-440) 04/19/17 10:21 Lymph % (Auto) 33.5 % (13.4-35.0) 04/19/17 10:21 Nelson % (Auto) 10.0 % (0.0-7.3) H 04/19/17 10:21 Eos % (Auto) 1.9 % (0.0-4.3) 04/19/17 10:21 Baso % (Auto) 0.4 % (0.0-1.8) 04/19/17 10:21 Lymph # 2.2 K/mm3 (1.2-5.4) 04/19/17 10:21 Nelson # 0.7 K/mm3 (0.0-0.8) 04/19/17 10:21 Eos # 0.1 K/mm3 (0.0-0.4) 04/19/17 10:21 Baso # 0.0 K/mm3 (0.0-0.1) 04/19/17 10:21 Seg Neutrophils % 54.2 % (40.0-70.0) 04/19/17 10:21 Seg Neutrophils # 3.6 K/mm3 (1.8-7.7) 04/19/17 10:21 PT 23.7 Sec. (12.2-14.9) H 04/19/17 13:47 INR 2.11 (0.87-1.13) H 04/19/17 13:47 APTT 37.5 Sec. (24.2-36.6) H 04/19/17 13:47 Sodium 138 mmol/L (137-145) 04/19/17 11:30 Potassium 3.7 mmol/L (3.6-5.0) 04/19/17 11:30 Chloride 98.1 mmol/L (98-107) 04/19/17 11:30 Carbon Dioxide 28 mmol/L (22-30) 04/19/17 11:30 Anion Gap 16 mmol/L 04/19/17 11:30 BUN 11 mg/dL (7-17) 04/19/17 11:30 Creatinine 0.6 mg/dL (0.7-1.2) L 04/19/17 11:30 Estimated GFR > 60 ml/min 04/19/17 11:30 BUN/Creatinine Ratio 18.33 % 04/19/17 11:30 Glucose 96 mg/dL (65-100) 04/19/17 11:30 Calcium 9.1 mg/dL (8.4-10.2) 04/19/17 11:30 Troponin T < 0.010 ng/mL (0.00-0.029) 04/19/17 13:32 - Imaging and Cardiology EKG: image reviewed Chest x-ray: image reviewed (No acute findings) Assessment and Plan Assessment and plan: A 57-year-old female presented to the ED via private vehicle from home with complaint of chest pain. Patient reported her symptoms started at 5 AM this morning that woke her up. She was diaphoretic, strong mid-sternum tightness, pressure and dull pain of 6 of 10 on scale of 0/10 last about 5 mins. Patient also reported she had nausea throughout the day yesterday. Patient stated she was discharged from the hospital about 2 weeks ago for pericarditis, and she's not on steroids. She also follows [facility], Dr. Luna. Patient denied fever, chest chills, syncopal episodes, falls, abdominal pain. Patient's past medical history CHF, A. fib on Coumadin, hypertension, GI bleed, gastric bypass 2002, cholecystectomy 1997, exploratory laparoscopy with lysis of lesion, smoker. -Chest pains- EKG obtained in the ED, serial cardiac enzymes ordered, consulted cardiology, Stress and echo ordered -Acute on Chronic Atrial fibrillation- controlled. Continue home meds Digoxin, Coumadin, monitor INR for therapeutic level -Chronic Diastolic heart failure- EKG and chest x-ray obtained in the ED, consulted cardiology, continue home meds Lasix by mouth, monitor labs -Hypertension- stable. Continue home meds Lorsartan, PO -Generalized anxiety disorder-continue home meds Prozac PO and Wellbutrin PO -Tobacco abuse- nicotine patch ordered, counseled patient on smoking cessation -DVT prophylaxis-Lovenox SQ ordered Advance Directives: No (Full Code) VTE prophylaxis?: Chemical Plan of care discussed with patient/family: Yes
[2017-04-19] MEDS ORDERED: HABITROL TD ONE (16:00)
[2017-04-19 16:14] LABS: Creatine Kinase MB 1.1 ng/mL (0.0-4.0)
[2017-04-19 16:16] LABS: Creatine Kinase 107 units/L (30-135)
[2017-04-19] MEDS ORDERED: COUMADIN PO SCH (17:00)
[2017-04-19 18:46] LABS: Creatine Kinase MB 2.1 ng/mL (0.0-4.0)
[2017-04-19 18:47] LABS: Creatine Kinase 90 units/L (30-135)
--- NOTE | 2017-04-19 19:04 | Admit Criteria Form ---
Admission Criteria Documentation: CARDIOLOGY GRG Clinical Indications for Admission to Inpatient Care ( Place 'X' for any and all applicable criteria): Hospital admission is needed for appropriate care of the patient because of ANY ONE of the following (1): [ ] I. Hemodynamic instability as indicated by ALL of the following (1)(2)(3) (4)(5) [ ]a) Vital signs or other findings not as expected for chronic patient condition or baseline [ ]b) Instability indicated by ANY ONE of the following: [ ]i) Hypotension [ ]ii) Symptomatic Tachycardia unresponsive to treatment ( e.g., analgesia, fluids, sedation as indicated) [ ]iii) Inadequate perfusion indicated by ANY ONE of the following: [ ] 1) Lactic acidosis (> 2 mmol/L) [ ] 2) New abnormal capillary refill (> 3 seconds) [ ] 3) Reduced urine output [ ] 4) New altered mental status [ ]iv) Orthostatic vital sign changes unresponsive to treatment (e.g., fluids) [ ]v) IV inotropic or vasopressor medication required to maintain adequate blood pressure or perfusion [ ] II. Severe heart failure as indicated by ANY ONE of the following(17)(18) [ ]a) Respiratory distress [ ]b) Hypotension [ ]c) Anasarca (refractory to outpatient therapy) [ ]d) Cardiac arrhythmias of immediate concern [ ]e) Myocardial ischemia [ ] III. Cardiac arrhythmias or findings of immediate concern indicated by ANY ONE of the following (19)(20): [ ] a) Heart rhythms that are inherently dangerous or unstable indicated by ANY ONE of the following (21)(22)(23): [ ] i) Resuscitated ventricular fibrillation or cardiac arrest [ ] ii) Ventricular escape rhythm [ ] iii) Sustained ventricular tachycardia (30 seconds or more of ventricular rhythm at greater than 100 beats per minute) [ ] iv) Nonsustained ventricular tachycardia and ANY ONE of the following: [ ] 1) Suspected cardiac ischemia as cause or consequence of ventricular tachycardia [ ] 2) In setting of acute myocarditis [ ] b) Unstable cardiac conduction defects indicated by ANY ONE of the following(23)(24)(25) [ ] i) Type II second-degree atrioventricular block [ ]ii) Third-degree atrioventricular block [ ]iii) New-onset left bundle branch block with suspected myocardial ischemia [ ]c) Any heart rhythm and ANY ONE of the following (21)(22)(26)(27) (28) [ ] i) Continuous long-term ECG monitoring needed (e.g., initiation of drug requiring monitoring for more than 24 hours) [ ] ii) Patient has automatic implanted cardioverter defibrillator that is repeatedly firing, malfunctioning, or in need of immediate adjustment of settings beyond the scope of ambulatory or observation care [ ]d) Heart rhythms of concern due to ANY ONE of the following: [ ] i) Hypotension [ ] ii) Respiratory distress [ ] iii) Association with other significant symptoms (e.g., bradycardia with syncope or ongoing dizziness, supraventricular tachycardia with chest pain (14)(15)(17) [ ] IV. Monitoring for cardiac contusion beyond the scope of observation care needed [A](30)(31)(32) [ ] V. Surgical or device complication (e.g., valve replacement complication , pacemaker dysfunction) (35)(41)(44)(45)(46) [ ] . Inpatient palliative care needed. [B](49) Also use Inpatient Palliative Care Criteria [ ] VII. Nonbacterial thrombotic (marantic) endocarditis (36)(43)(47)(48) [ X] VIII. Cardiology condition, symptom, or finding for which emergency and observation care has failed or are not considered appropriate. [ ] IX. Acute valvular disease requiring inpatient as indicated by ANY ONE of the following (41) [ ]a) Acute valvular regurgitation (42) [ ]b) Noninfectious valvulitis (43) [ ]c) Obstructive valve thrombosis [ ]d) Paravalvular leak [ ]e) Other significant valvular disorder remaining after emergency or observation level of care (as appropriate) [ ]X. Pericardial disease requiring inpatient treatment as indicated by ANY ONE of the following (33)(34)(35)(36)(37) [ ]a) Suspected tamponade (38)(39)(40) [ ]b) Hemopericardium [ ]c) Other significant pericardial disorder remaining after emergency or observation level of care (as appropriate) [ ] XI. Cardiac ischemia beyond scope of emergency and observation care. [ ] XII. Hypertension requiring inpatient treatment as indicated by ANY ONE of the following (6)(7)(8) [ ]a) SBP greater than 220 mm Hg or DBP greater than 120 mmHg despite treatment [ ]b) SBP greater than 140 mm Hg or DBP greater than 100 mm Hg with evidence of acute end organ damage as indicated by ANY ONE of the following [ ] i) Altered mental status [ ] ii) Acute renal failure as indicated by new onset of ANY ONE of the following (9)(10)(11)(12)(13) [ ]1) 3-fold rise in serum creatinine from baseline [ ]2) Serum creatinine greater than 4 mg/dL ( 354 micromoles/L) with acute rise greater than 0.5 mg/dL (44.2 micromoles/L) [ ]3) Reduction of more than 75% in estimated glomerular filtration rate from baseline [ ]4) Estimated glomerular filtration rate less than 35 mL/min/1.73m2 (0.59 mL/sec/1.73m2) in child up to 18 years of age [ ]5) Cessation of urine output indicated by ALL of the following [ ]A. Adequate volume status [ ]B. Inadequate urine output as indicated by ANY ONE of the following [ ]a. Urine output less than 0.3 mL/kg/hr for 24 hours [ ]b. Anuria (urine output less than 0.1 mL/kg/hr) for 12 hours [ ] iii) Aortic dissection [ ] iv) Myocardial Ischemia [ ] v) Left ventricular heart failure [ ]vi) Retinal Hemorrhage [ ]vii) Other significant finding [ ]c) Hypertension in child requiring inpatient treatment as indicated by ALL of the following(14)(15)(16) [ ] i) Outpatient treatment not effective, not available, or not appropriate [ ]ii) SBP or DBP greater than 95th percentile for age [ ]iii) Evidence of acute end organ damage as indicated by ANY ONE of the following [ ]1) Altered mental status [ ]2) Acute renal failure as indicated by new onset of ANY ONE of the following(9)(10)(11)(12)(13) [ ]A. 3-fold rise in serum creatinine from baseline [ ]B. Serum creatinine greater than 4 mg/dL (354 micromoles/L) with acute rise greater than 0.5 mg/dL (44.2 micromoles/L) [ ]C. Reduction of more than 75% in estimated glomerular filtration rate from baseline [ ]D. Estimated glomerular filtration rate less than 35 mL/min/1.73m2 (0.59 mL/sec/1.73m2) in child up to 18 years of age [ ]E. Cessation of urine output indicated by ALL of the following [ ]a. Adequate volume status [ ]b. Inadequate urine output as indicated by ANY ONE of the following [ ]i) Urine output less than 0.3 mL/kg/hr for 24 hours [ ]ii) Anuria ( urine output less than 0.1 mL/kg/hr) for 12 hours [ ]3) Severe headache [ ]4) Visual disturbance [ ]5) Retinal hemorrhage [ ]6) Other significant finding [ ]XIII. Complications of transplanted heart indicated by ANY ONE of the following(61): [ ]a) Acute graft rejection requiring inpatient management (eg, intravenous immunosuppression)(62)(63) [ ]b) Acute graft heart failure indicated by ANY ONE of the following(64): [ ]i) Hemodynamic instability [ ]ii) Cardiac arrhythmias of immediate concern [ ]iii) Pulmonary edema that is very severe (eg, mechanical ventilation needed, imminent or likely, need for 100% oxygen to keep oxygen saturation above 90%) [ ]iv) Pulmonary edema that is persistent as indicated by ALL of the following: [ ]1) New need for oxygen therapy to keep oxygen saturation above 90% (or increased FiO2 need from baseline) [ ]2) Has not improved sufficiently with emergency department or observation care IV diuretics or other heart failure treatments[E] [ ]v) Altered mental status that is severe or persistent [ ]vi) Increased creatinine (new on laboratory test) with reduction of more than 50% in estimated glomerular filtration rate from baseline [ ]vii) Progressively (ongoing) rising creatinine (known from past laboratory test) with reduction of more than 25% in estimated glomerular filtration rate from baseline [ ]viii) Acute renal failure [ ]ix) Acute peripheral ischemia (eg, examination shows pulseless, cool, mottled, or cyanotic extremity) [ ]x) Pulmonary artery catheter monitoring needed [ ]xi) Other sign or symptom of heart failure requiring inpatient treatment (ie, too severe or not responsive to outpatient and observation care treatment) [ ]c) Infection requiring inpatient management (eg, Hemodynamic instability, need for intravenous antimicrobial treatment)(66)(67)(68)(69)(70) [ ]d) Cardiac allograft vasculopathy requiring inpatient management ( eg evidence of cardiac ischemia)(71) [ ]e) Other complication of transplanted heart (eg, stroke, severe pulmonary hypertension, severe valvular dysfunction) requiring inpatient management(72) The original [facility] [employer] content created by [facility] [employer] has been revised. The portions of the content which have been revised are identified through the use of italic text or in bold, and [facility] has neither reviewed nor approved the modified material. All other unmodified content is copyright [facility] [employer]. Please see references footnoted in the original [facility] [employer] edition 2016 Admission Criteria Met: Yes
[2017-04-19 21:22] LABS: Creatine Kinase 84 units/L (30-135)
[2017-04-19] MEDS: ROBAXIN PO SCH (21:39)
[2017-04-19] MEDS: LOPRESSOR PO SCH (21:39)
[2017-04-19] MEDS: ZOFRAN IV PRN (21:40)
[2017-04-19] MEDS: ULTRAM PO PRN (21:40)
[2017-04-19] MEDS ORDERED: LOVENOX SUB-Q SCH (22:00)
[2017-04-20 06:11] LABS: Basophils % (Auto) 0.8 % (0.0-1.8); Eosinophils % (Auto) 1.7 % (0.0-4.3); Hematocrit 33.8 % (30.3-42.9); Hemoglobin 10.9 gm/dl (10.1-14.3); Mean Corpuscular HGB Conc 32 % (30-34); Mean Corpuscular Volume 75 fl (79-97); Platelet Count 277 K/mm3 (140-440); Red Blood Count 4.49 M/mm3 (3.65-5.03); Red Cell Distribution Width 15.4 % (13.2-15.2); White Blood Count 6.5 K/mm3 (4.5-11.0)
[2017-04-20 06:22] LABS: Mean Corpuscular Hemoglobin 24 pg (28-32)
[2017-04-20 06:23] LABS: Anion Gap 16 mmol/L; BUN/Creatinine Ratio 18.57; Blood Urea Nitrogen 13 mg/dL (7-17); Carbon Dioxide 29 mmol/L (22-30); Chloride 100.9 mmol/L (98-107); Glucose 97 mg/dL (65-100); Potassium 3.8 mmol/L (3.6-5.0); Sodium 142 mmol/L (137-145)
[2017-04-20] MEDS ORDERED: NON-FORMULARY (Potassium Chloride [Potassium Chloride] 20 MEQ) PO SCH (10:00)
[2017-04-20] MEDS ORDERED: NON-FORMULARY (Fluoxetine Hcl [Prozac] 20 MG) PO SCH (10:00)
[2017-04-20] MEDS ORDERED: K-DUR PO SCH (10:00)
[2017-04-20] MEDS: LOPRESSOR PO SCH ×2 (10:36→21:18)
[2017-04-20] MEDS: WELLBUTRIN SR PO SCH (10:36)
[2017-04-20] MEDS: PROzac PO SCH (10:37)
[2017-04-20] MEDS: LANOXIN PO SCH (10:37)
[2017-04-20] MEDS: ROBAXIN PO SCH ×2 (10:37→21:17)
[2017-04-20] MEDS: LASIX PO SCH (10:37)
[2017-04-20] MEDS: K-DUR PO SCH (10:39)
[2017-04-20] MEDS: COZAAR PO SCH (10:39)
--- NOTE | 2017-04-20 11:45 | Consultation ---
History of Present Illness Consult date: 04/20/17 Consult reason: chest pain History of present illness: This is a 57yr old woman who reports a history of gastric bypass, ischemic cardiomyopathy and chronic atrial fibrillation on warfarin for anticoagulation. Her latest cardiac workup was done at this hospital last month. She had a persantine stress thallium that demonstrated no ischemia. Ejection fraction 15- 20% on last echocardiogram. She returns to this hospital with chest pain. Patient reports chest pain woke her from sleep. She denies chest pain on exertion. She has no shortness of breath. Cardiac enzymes are negative x 3. Therapeutic INR of 2.1 on presentation. 12 lead ECG shows atrial fibrillation with a well controlled ventricular rate. No acute ischemic changes. Cardiology consultation requested for evaluation of chest pain. Past History Past Medical History: atrial fib, heart failure, hypertension, other (PTSD, Anxiety disorder, Depression) Past Surgical History: cholecystectomy, Other (Gastric Bypass 2002, EX-LAP with lysis of lesion, Skin graft) Social history: , lives with family, smoking (2-3 cigarettes per day), full code. denies: alcohol abuse, prescription drug abuse Family history: cancer (bladder), diabetes, hypertension Medications and Allergies Allergies Allergy/AdvReac Type Severity Reaction Status Date / Time NSAIDS (Non-Steroidal AdvReac Unknown Verified 09/15/16 14:36 Anti-Inflamma Home Medications Medication Instructions Recorded Confirmed Last Taken Type Digoxin [Lanoxin] 0.25 mg PO DAILY 09/24/16 04/20/17 1 Day Ago History Furosemide [Lasix TAB] 40 mg PO QDAY 09/24/16 04/20/17 1 Day Ago History Losartan [Cozaar] 50 mg PO QDAY 09/24/16 04/20/17 1 Day Ago History Metoprolol [Lopressor TAB] 25 mg PO BID 09/24/16 04/20/17 1 Day Ago History Potassium Chloride 20 meq PO QDAY 09/24/16 04/20/17 1 Day Ago History Warfarin [Coumadin] 5 mg PO 4XW 09/24/16 04/20/17 1 Day Ago History Warfarin [Coumadin] 7.5 mg PO 3XW 09/24/16 04/20/17 1 Day Ago History methOCARBAMOL [Robaxin TAB] 500 mg PO BID #14 tab 03/06/17 04/20/17 1 Day Ago Rx FLUoxetine HCL [PROzac] 40 mg PO QDAY 03/17/17 04/20/17 1 Day Ago History buPROPion SR [Wellbutrin SR] 150 mg PO QAM 03/17/17 04/20/17 1 Day Ago History traMADol [Ultram] 50 mg PO Q6HR PRN #10 tablet 03/19/17 04/20/17 1 Day Ago Rx Active Meds: Active Medications Acetaminophen (Tylenol) 650 mg PO Q4H PRN PRN Reason: Pain MILD(1-3)/Fever >100.5/JIMÉNEZ Bisacodyl (Dulcolax) 10 mg MA QDAY PRN PRN Reason: Constipation unrelieved by MOM Bupropion HCl (Wellbutrin Sr) 150 mg PO QAM [facility] Last Admin: 04/20/17 10:36 Dose: 150 mg Digoxin (Lanoxin) 0.25 mg PO DAILY [facility] Last Admin: 04/20/17 10:37 Dose: 0.25 mg Fluoxetine HCl (Prozac) 40 mg PO QDAY [facility] Last Admin: 04/20/17 10:37 Dose: 40 mg Furosemide (Lasix) 40 mg PO QDAY [facility] Last Admin: 04/20/17 10:37 Dose: 40 mg Losartan Potassium (Cozaar) 50 mg PO QDAY [facility] Last Admin: 04/20/17 10:39 Dose: 50 mg Magnesium Hydroxide (Milk Of Magnesia) 30 ml PO Q4H PRN PRN Reason: Constipation Methocarbamol (Robaxin) 500 mg PO BID [facility] Last Admin: 04/20/17 10:37 Dose: 500 mg Metoprolol Tartrate (Lopressor) 25 mg PO BID [facility] Last Admin: 04/20/17 10:36 Dose: 25 mg Ondansetron HCl (Zofran) 4 mg IV Q6H PRN PRN Reason: Nausea And Vomiting Last Admin: 04/19/17 21:40 Dose: 4 mg Potassium Chloride (K-Dur) 20 meq PO QDAY [facility] Last Admin: 04/20/17 10:39 Dose: 20 meq Sodium Chloride (Sodium Chloride Flush Syringe 10 Ml) 10 ml IV PRN PRN PRN Reason: LINE FLUSH Tramadol HCl (Ultram) 50 mg PO Q6HR PRN PRN Reason: Pain Last Admin: 04/19/17 21:40 Dose: 50 mg Physical Examination Vital Signs Temp Pulse Resp BP Pulse Ox 97.9 F 63 16 131/73 100 04/19/17 10:12 04/19/17 10:12 04/19/17 10:12 04/19/17 10:12 04/19/17 10:12 General appearance: no acute distress HEENT: Positive: PERRL Neck: Positive: trachea midline Cardiac: Positive: irregularly irregular Lungs: Positive: Decreased Breath Sounds Neuro: Positive: Grossly Intact Results 04/20/17 04:23 04/20/17 04:23 Cardiac Enzymes 04/19/17 04/19/17 04/19/17 Range/Units 15:30 17:54 20:31 CK-MB (CK-2) 1.1 2.1 2.0 (0.0-4.0) ng/mL Coagulation 04/20/17 Range/Units 04:23 PT 22.7 H (12.2-14.9) Sec. INR 2.00 H (0.87-1.13) CBC 04/20/17 Range/Units 04:23 WBC 6.5 (4.5-11.0) K/mm3 RBC 4.49 (3.65-5.03) M/mm3 Hgb 10.9 (10.1-14.3) gm/dl Hct 33.8 (30.3-42.9) % Plt Count 277 (140-440) K/mm3 Lymph # 2.7 (1.2-5.4) K/mm3 [place] # 0.6 (0.0-0.8) K/mm3 Eos # 0.1 (0.0-0.4) K/mm3 Baso # 0.1 (0.0-0.1) K/mm3 Comprehensive Metabolic Panel 04/20/17 Range/Units 04:23 Sodium 142 (137-145) mmol/L Potassium 3.8 (3.6-5.0) mmol/L Chloride 100.9 (98-107) mmol/L Carbon Dioxide 29 (22-30) mmol/L BUN 13 (7-17) mg/dL Creatinine 0.7 (0.7-1.2) mg/dL Glucose 97 (65-100) mg/dL Calcium 9.0 (8.4-10.2) mg/dL Assessment and Plan Chest pain Chronic Afib, rate controlled on warfarin as an outpatient Hx of NICMP No ischemia on MPI 03/2017 EF 15-20% on echo 2014 Plan: Hold warfarin. We will plan further cardiac evaluation with a [facility] when INR is less than 1.5. Continue medical therapy for her chronic afib and nonischemic cardiomyopathy.
--- NOTE | 2017-04-20 12:46 | Event Note ---
Date: 04/20/17 The patient is a 57-year-old woman with a history of chronic atrial fibrillation and a dilated cardiomyopathy on medical therapy. Her cardiomyopathy has been labeled a nonischemic myopathy on the basis of negative thallium stress test. There is no history of coronary artery disease. 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 She presents to the hospital at this time with complaints of substernal and epigastric pain, associated with nausea. Her pain was not exertional, and there was no shortness of breath. She reports a history of previous gastric bypass surgery, and history of 5 cholecystectomy. Recommendations: Patient's chest pain is somewhat atypical, may likely be GI in origin. Given underlying cardiomyopathy, he will be prudent to proceed with diagnostic chronic angiography for definitive assessment for coronary disease as a basis for chest pain and cardiomyopathy. We will hold patient's warfarin, and plan for cardiac catheterization when the INR is 1.5.
[2017-04-20] MEDS: ZOFRAN IV PRN ×2 (14:19→21:19)
[2017-04-20] MEDS: ULTRAM PO PRN ×2 (14:19→21:17)
--- NOTE | 2017-04-20 14:20 | Progress Note ---
Assessment and Plan Assessment and plan: Atypical Chest pain Chronic arthritic fibrillation on anticoagulation Nonischemic cardiomyopathy - Cardiology consulted the plan is to do cardiac cath after her INR is below 1.5 - Patient said she has a followup with her pediatric oncologist to have ICD placement - We will discontinue warfarin - Serial cardiac enzymes are negative - We'll do echo - Resume home medications - Pain control DVT prophylaxis - Was on warfarin INR was 2 Disposition - We'll continue inpatient care History Interval history: Patient was seen and evaluated this morning, she is still complaining chest pain. Hospitalist Physical - Physical exam Narrative exam: Not in cardiopulmonary distress. The patient appeared well nourished and normally developed. Vital signs as documented. Head exam is unremarkable. No scleral icterus . Neck is without jugular venous distension, thyromegaly, or carotid bruits. Lungs are clear to auscultation. Cardiac exam reveals an irregularly irregular HR. Abdominal exam reveals normal bowel sounds, no masses, no organomegaly and no aortic enlargement. Extremities are nonedematous and both femoral and pedal pulses are normal. EDUCATION MANAGER: Alert and oriented 3. No focal weakness. - Constitutional Vitals: Temp Pulse Resp BP Pulse Ox 97.5 F L 67 18 127/77 100 04/20/17 08:00 04/20/17 10:39 04/20/17 08:00 04/20/17 10:39 04/20/17 08:00 General appearance: Present: no acute distress Results - Labs CBC & Chem 7: 04/20/17 04:23 04/20/17 04:23 Labs: Laboratory Last Values WBC 6.5 K/mm3 (4.5-11.0) 04/20/17 04:23 RBC 4.49 M/mm3 (3.65-5.03) 04/20/17 04:23 Hgb 10.9 gm/dl (10.1-14.3) 04/20/17 04:23 Hct 33.8 % (30.3-42.9) 04/20/17 04:23 MCV 75 fl (79-97) L 04/20/17 04:23 MCH 24 pg (28-32) L 04/20/17 04:23 MCHC 32 % (30-34) 04/20/17 04:23 RDW 15.4 % (13.2-15.2) H 04/20/17 04:23 Plt Count 277 K/mm3 (140-440) 04/20/17 04:23 Lymph % (Auto) 41.5 % (13.4-35.0) H 04/20/17 04:23 [place] % (Auto) 9.1 % (0.0-7.3) H 04/20/17 04:23 Eos % (Auto) 1.7 % (0.0-4.3) 04/20/17 04:23 Baso % (Auto) 0.8 % (0.0-1.8) 04/20/17 04:23 Lymph # 2.7 K/mm3 (1.2-5.4) 04/20/17 04:23 [place] # 0.6 K/mm3 (0.0-0.8) 04/20/17 04:23 Eos # 0.1 K/mm3 (0.0-0.4) 04/20/17 04:23 Baso # 0.1 K/mm3 (0.0-0.1) 04/20/17 04:23 Seg Neutrophils % 46.9 % (40.0-70.0) 04/20/17 04:23 Seg Neutrophils # 3.0 K/mm3 (1.8-7.7) 04/20/17 04:23 PT 22.7 Sec. (12.2-14.9) H 04/20/17 04:23 INR 2.00 (0.87-1.13) H 04/20/17 04:23 APTT 37.5 Sec. (24.2-36.6) H 04/19/17 13:47 Sodium 142 mmol/L (137-145) 04/20/17 04:23 Potassium 3.8 mmol/L (3.6-5.0) 04/20/17 04:23 Chloride 100.9 mmol/L (98-107) 04/20/17 04:23 Carbon Dioxide 29 mmol/L (22-30) 04/20/17 04:23 Anion Gap 16 mmol/L 04/20/17 04:23 BUN 13 mg/dL (7-17) 04/20/17 04:23 Creatinine 0.7 mg/dL (0.7-1.2) 04/20/17 04:23 Estimated GFR > 60 ml/min 04/20/17 04:23 BUN/Creatinine Ratio 18.57 % 04/20/17 04:23 Glucose 97 mg/dL (65-100) 04/20/17 04:23 Calcium 9.0 mg/dL (8.4-10.2) 04/20/17 04:23 Total Creatine Kinase 84 units/L (30-135) 04/19/17 20:31 CK-MB (CK-2) 2.0 ng/mL (0.0-4.0) 04/19/17 20:31 CK-MB (CK-2) Rel Index 2.3 (0-4) 04/19/17 20:31 Troponin T < 0.010 ng/mL (0.00-0.029) 04/19/17 20:31 Digoxin 0.9 ng/mL (0.9-2.0) 04/19/17 13:54
[2017-04-20] MEDS ORDERED: COUMADIN PO SCH ×2 (17:00)
[2017-04-21 07:17] LABS: INR 2.05 (0.87-1.13)
[2017-04-21 07:34] LABS: Anion Gap 13 mmol/L; BUN/Creatinine Ratio 26.66; Blood Urea Nitrogen 16 mg/dL (7-17); Calcium 8.5 mg/dL (8.4-10.2); Carbon Dioxide 31 mmol/L (22-30); Glucose 86 mg/dL (65-100); Potassium 4.1 mmol/L (3.6-5.0); Sodium 141 mmol/L (137-145)
[2017-04-21] MEDS: COZAAR PO SCH (09:21)
[2017-04-21] MEDS: K-DUR PO SCH (09:22)
[2017-04-21] MEDS: LANOXIN PO SCH (09:23)
[2017-04-21] MEDS: PROzac PO SCH (09:30)
[2017-04-21] MEDS: LOPRESSOR PO SCH ×2 (09:30→21:37)
[2017-04-21] MEDS: LASIX PO SCH (09:30)
[2017-04-21] MEDS: WELLBUTRIN SR PO SCH (09:31)
[2017-04-21] MEDS: ROBAXIN PO SCH ×2 (09:31→21:37)
--- NOTE | 2017-04-21 09:51 | Progress Note ---
Assessment and Plan Chest pain, atypical may likely be GI in origin. Chronic Afib, rate controlled on warfarin as an outpatient but currently on hold for planned C Hx of NICMP No ischemia on MPI 03/2017 EF 15-20% on echo 2014 Plan: Continue medical therapy for her chronic afib and nonischemic cardiomyopathy. For cardiac catheterization when the INR is 1.5. Subjective Date of service: 04/21/17 Interval history: Patient reports intermittent chest pain overnight. Afib rate controlled on telemetry. Objective Vital Signs Temp Pulse Pulse Resp Resp BP BP 04/21/17 09:30 100/60 04/21/17 09:23 61 100/60 04/21/17 09:21 100/60 04/21/17 09:05 97.9 F 55 L 16 116/54 04/21/17 08:21 97.9 F 55 L 16 04/21/17 04:10 98.9 F 62 18 116/54 04/21/17 02:23 71 04/21/17 00:50 98.5 F 65 16 110/53 04/20/17 22:00 18 18 04/20/17 21:18 71 113/58 04/20/17 21:17 18 04/20/17 21:06 97.8 F 68 18 90/48 04/20/17 17:20 55 L 04/20/17 16:35 97.9 F 66 20 117/56 04/20/17 12:00 975 F H 55 L 18 96/49 04/20/17 10:39 67 127/77 04/20/17 10:37 67 127/77 04/20/17 10:36 67 127/77 BP Pulse Ox 04/21/17 09:30 04/21/17 09:23 04/21/17 09:21 04/21/17 09:05 100/60 97 04/21/17 08:21 97 04/21/17 04:10 99 04/21/17 02:23 04/21/17 00:50 98 04/20/17 22:00 98 04/20/17 21:18 04/20/17 21:17 04/20/17 21:06 98 04/20/17 17:20 04/20/17 16:35 95 04/20/17 12:00 97 04/20/17 10:39 04/20/17 10:37 04/20/17 10:36 - Physical Examination General: No Apparent Distress HEENT: Positive: PERRL Neck: Positive: trachea midline Cardiac: Positive: irregularly irregular Lungs: Positive: Decreased Breath Sounds Neuro: Positive: Grossly Intact - Labs and Meds Coagulation 04/21/17 Range/Units 05:52 PT 23.2 H (12.2-14.9) Sec. INR 2.05 H (0.87-1.13) Comprehensive Metabolic Panel 04/21/17 Range/Units 05:52 Sodium 141 (137-145) mmol/L Potassium 4.1 (3.6-5.0) mmol/L Chloride 101.0 (98-107) mmol/L Carbon Dioxide 31 H (22-30) mmol/L BUN 16 (7-17) mg/dL Creatinine 0.6 L (0.7-1.2) mg/dL Glucose 86 (65-100) mg/dL Calcium 8.5 (8.4-10.2) mg/dL - Imaging and Cardiology EKG: image reviewed
[2017-04-21] MEDS: NORCO 5/325 PO PRN ×2 (13:01→21:35)
[2017-04-21] MEDS ORDERED: VITAMIN K *ORAL LIQUID PO ONE (14:36)
--- NOTE | 2017-04-21 14:40 | Progress Note ---
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 History Interval history: Patient was seen and evaluated this morning, chest pain subsided. Hospitalist Physical - Physical exam Narrative exam: Not in cardiopulmonary distress. The patient appeared well nourished and normally developed. Vital signs as documented. Head exam is unremarkable. No scleral icterus . Neck is without jugular venous distension, thyromegaly, or carotid bruits. Lungs are clear to auscultation. Cardiac exam reveals an irregularly irregular HR. Abdominal exam reveals normal bowel sounds, no masses, no organomegaly and no aortic enlargement. Extremities are nonedematous and both femoral and pedal pulses are normal. 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 No focal weakness. - Constitutional Vitals: Temp Pulse Resp BP Pulse Ox 98.0 F 56 L 16 102/64 98 04/21/17 13:06 04/21/17 13:06 04/21/17 13:06 04/21/17 13:06 04/21/17 13:06 General appearance: Present: no acute distress Results - Labs CBC & Chem 7: 04/20/17 04:23 04/21/17 05:52 Labs: Laboratory Last Values WBC 6.5 K/mm3 (4.5-11.0) 04/20/17 04:23 RBC 4.49 M/mm3 (3.65-5.03) 04/20/17 04:23 Hgb 10.9 gm/dl (10.1-14.3) 04/20/17 04:23 Hct 33.8 % (30.3-42.9) 04/20/17 04:23 MCV 75 fl (79-97) L 04/20/17 04:23 MCH 24 pg (28-32) L 04/20/17 04:23 MCHC 32 % (30-34) 04/20/17 04:23 RDW 15.4 % (13.2-15.2) H 04/20/17 04:23 Plt Count 277 K/mm3 (140-440) 04/20/17 04:23 Lymph % (Auto) 41.5 % (13.4-35.0) H 04/20/17 04:23 [place] % (Auto) 9.1 % (0.0-7.3) H 04/20/17 04:23 Eos % (Auto) 1.7 % (0.0-4.3) 04/20/17 04:23 Baso % (Auto) 0.8 % (0.0-1.8) 04/20/17 04:23 Lymph # 2.7 K/mm3 (1.2-5.4) 04/20/17 04:23 [place] # 0.6 K/mm3 (0.0-0.8) 04/20/17 04:23 Eos # 0.1 K/mm3 (0.0-0.4) 04/20/17 04:23 Baso # 0.1 K/mm3 (0.0-0.1) 04/20/17 04:23 Seg Neutrophils % 46.9 % (40.0-70.0) 04/20/17 04:23 Seg Neutrophils # 3.0 K/mm3 (1.8-7.7) 04/20/17 04:23 PT 23.2 Sec. (12.2-14.9) H 04/21/17 05:52 INR 2.05 (0.87-1.13) H 04/21/17 05:52 APTT 37.5 Sec. (24.2-36.6) H 04/19/17 13:47 Sodium 141 mmol/L (137-145) 04/21/17 05:52 Potassium 4.1 mmol/L (3.6-5.0) 04/21/17 05:52 Chloride 101.0 mmol/L (98-107) 04/21/17 05:52 Carbon Dioxide 31 mmol/L (22-30) H 04/21/17 05:52 Anion Gap 13 mmol/L 04/21/17 05:52 BUN 16 mg/dL (7-17) 04/21/17 05:52 Creatinine 0.6 mg/dL (0.7-1.2) L 04/21/17 05:52 Estimated GFR > 60 ml/min 04/21/17 05:52 BUN/Creatinine Ratio 26.66 % 04/21/17 05:52 Glucose 86 mg/dL (65-100) 04/21/17 05:52 Calcium 8.5 mg/dL (8.4-10.2) 04/21/17 05:52 Total Creatine Kinase 84 units/L (30-135) 04/19/17 20:31 CK-MB (CK-2) 2.0 ng/mL (0.0-4.0) 04/19/17 20:31 CK-MB (CK-2) Rel Index 2.3 (0-4) 04/19/17 20:31 Troponin T < 0.010 ng/mL (0.00-0.029) 04/19/17 20:31 Digoxin 0.9 ng/mL (0.9-2.0) 04/19/17 13:54
[2017-04-21] MEDS: ZOFRAN IV PRN (21:37)
[2017-04-22 07:47] LABS: INR 1.26 (0.87-1.13)
[2017-04-22 07:49] LABS: Anion Gap 13 mmol/L; BUN/Creatinine Ratio 18.57; Blood Urea Nitrogen 13 mg/dL (7-17); Calcium 8.8 mg/dL (8.4-10.2); Carbon Dioxide 29 mmol/L (22-30); Chloride 101.4 mmol/L (98-107); Glucose 86 mg/dL (65-100); Potassium 4.4 mmol/L (3.6-5.0); Sodium 139 mmol/L (137-145)
[2017-04-22] MEDS ORDERED: HEPARIN/NS 5000 UNIT/500ML(CATH LAB) 1,000 ML IR ONE (12:19)
[2017-04-22] MEDS ORDERED: CALAN ONE (12:19)
[2017-04-22] MEDS ORDERED: HEPARIN 10,000 UNITS/10 ML ONE (12:19)
[2017-04-22] MEDS ORDERED: XYLOCAINE 2% INFILTRATI ONE (12:19)
[2017-04-22] MEDS ORDERED: NITROGLYCERIN SYRINGE 3 ML ONE (12:19)
[2017-04-22] MEDS ORDERED: NACL 0.9% 500 ML 500 ML ONE (12:25)
[2017-04-22] MEDS: SUBLIMAZE ONE ×3 (12:37→12:55)
[2017-04-22] MEDS: VERSED ONE ×2 (12:37→12:44)
--- NOTE | 2017-04-22 13:01 | Progress Note ---
Assessment and Plan Chest pain, atypical may likely be GI in origin. Normal coronaries by LHC today Chronic Afib, rate controlled on warfarin as an outpatient Hx of NICMP No ischemia on MPI 03/2017 EF 15-20% on echo 2014 Plan: Continue medical therapy for her chronic afib and nonischemic cardiomyopathy. Resume warfarin 7.5 mg 3 times a week and 5 mg 4 times a week Follow-up in office within 1 week for INR check May go home cardiac zendejas Subjective Date of service: 04/22/17 Principal diagnosis: Chest Pain Interval history: Patient underwent a LHC this morning showing normal coronaries, no complications Objective Vital Signs Temp Pulse Pulse Resp BP BP BP 04/22/17 11:32 98.4 F 66 18 123/59 04/22/17 10:40 63 20 04/22/17 09:32 63 04/22/17 07:36 97.9 F 54 L 20 161/80 04/22/17 06:33 97.8 F 50 L 22 99/61 04/22/17 05:00 48 L 04/22/17 00:00 97.8 F 64 20 99/49 04/21/17 21:37 63 112/53 04/21/17 21:35 18 04/21/17 21:02 18 04/21/17 20:00 98.1 F 63 20 112/53 04/21/17 16:54 98.0 F 57 L 16 122/72 04/21/17 13:06 98.0 F 56 L 16 102/64 Pulse Ox 04/22/17 11:32 98 04/22/17 10:40 99 04/22/17 09:32 04/22/17 07:36 99 04/22/17 06:33 100 04/22/17 05:00 04/22/17 00:00 98 04/21/17 21:37 04/21/17 21:35 04/21/17 21:02 98 04/21/17 20:00 96 04/21/17 16:54 98 04/21/17 13:06 98 - Physical Examination General: No Apparent Distress HEENT: Positive: PERRL Neck: Positive: trachea midline Cardiac: Positive: Reg Rate and Rhythm Lungs: Positive: Normal Exam Neuro: Positive: Grossly Intact - Labs and Meds Coagulation 04/22/17 Range/Units 06:45 PT 15.7 H (12.2-14.9) Sec. INR 1.26 H (0.87-1.13) Comprehensive Metabolic Panel 04/22/17 Range/Units 06:45 Sodium 139 (137-145) mmol/L Potassium 4.4 (3.6-5.0) mmol/L Chloride 101.4 (98-107) mmol/L Carbon Dioxide 29 (22-30) mmol/L BUN 13 (7-17) mg/dL Creatinine 0.7 (0.7-1.2) mg/dL Glucose 86 (65-100) mg/dL Calcium 8.8 (8.4-10.2) mg/dL - Imaging and Cardiology EKG: image reviewed
--- NOTE | 2017-04-22 14:11 | Cardiac Catherization Report ---
LEFT HEART CATHETERIZATION ORDERING PHYSICIAN: Jose Antonio Randall MD INDICATION FOR PROCEDURE: Chest pain. PROCEDURES PERFORMED: 1. Selective left and right coronary angiography. 2. Left ventriculogram was not performed due to myocardial excitability and arrhythmias. DESCRIPTION OF PROCEDURE: After obtaining written consent, the patient was draped using sterile technique. A 2% lidocaine was injected into the right wrist after the documentation of a positive Uzair's test. A 5-Barbadian JL3.5 catheter was used to selectively engage the left coronary artery. A 5-Barbadian JR4 catheter was used to selectively engage the right coronary artery. A 5-Barbadian JR4 catheter was used to measure LVEDP. Left ventriculogram was not performed due to excessive myocardial excitability an arrhythmia. No complications occurred during the procedure. Hemostasis was achieved at the end of the procedure using manual pressure. ESTIMATED BLOOD LOSS: Minimal. SEDATION: Administered 1 mg of IV Versed and 50 mcg of IV fentanyl. FINDINGS: HEMODYNAMICS: Aortic pressure 165/96. LV systolic pressure 164 mmHg and LVEDP was measured at 41 mmHg. CARDIAC STRUCTURES: The left ventriculogram was not performed. CORONARY ANATOMY: 1. This is a right dominant circulation. 2. Left main is angiographically normal. 3. LAD is angiographically normal. 4. Left circumflex artery is angiographically normal. 5. Right coronary artery is angiographically normal. IMPRESSION: 1. Angiographically normal coronary arteries. 2. Elevated LVEDP. RECOMMENDATIONS: Continue current management. JOB# [id number] MITCHELL/LAWRENCE
[2017-04-22] MEDS: LOPRESSOR PO SCH ×2 (14:12→14:34)
[2017-04-22] MEDS: COZAAR PO SCH ×2 (14:13→14:33)
[2017-04-22] MEDS: LANOXIN PO SCH ×2 (14:13→14:33)
--- NOTE | 2017-04-22 14:22 | Discharge Summary ---
Providers - Providers Date of Admission: 04/19/17 14:57 Date of discharge: 04/22/17 Attending physician: JAD ORTA MD Primary care physician: AALIYAH VALENZUELA Hospitalization Reason for admission: Chest pain Condition: Stable Procedures: Cardiac cath Hospital course: A 57-year-old female presented to the ED via private vehicle from home with complaint of chest pain. Patient reported her symptoms started at 5 AM this morning that woke her up. She was diaphoretic, strong mid-sternum tightness, pressure and pain of 6 of 10 on scale of 0/10. Patient also reported she had nausea throughout the day yesterday. She also follows [facility]. Patient denied fever, chest chills, syncopal episodes, falls, abdominal pain. Patient's past medical history CHF, A. fib on Coumadin, hypertension. Patient was admitted to the floor, pain was controlled. Cardiology was consulted, because of recurrent chest pain they did cardiac cath and she has no blockage. Patient was pain-free to stay and discharged after cardiac cath. Patient was hemodynamically stable as a time of discharge. Her warfarin restarted as a time of discharge. Patient's medications were refilled. Patient 's questions and concerns were answered at the bed side. Disposition: DC-01 TO HOME OR SELFCARE Time spent for discharge: 31 minutes - Discharge Diagnoses (1) Chest pain Status: Acute Qualifiers: Chest pain type: C Ischemic chest pain type: I (2) Chronic pain Status: Acute Qualifiers: Chronic pain type: C (3) Anxiety Status: Chronic (4) Cardiomyopathy Status: Chronic Qualifiers: Cardiomyopathy type: C Core Measure Documentation - Palliative Care Palliative Care/ Comfort Measures: Not Applicable - Core Measures Any of the following diagnoses?: none Exam - Physical Exam Narrative exam: Not in cardiopulmonary distress. The patient appeared well nourished and normally developed. Vital signs as documented. Head exam is unremarkable. No scleral icterus . Neck is without jugular venous distension, thyromegaly, or carotid bruits. Lungs are clear to auscultation. Cardiac exam reveals an irregularly irregular HR. Abdominal exam reveals normal bowel sounds, no masses, no organomegaly and no aortic enlargement. Extremities are nonedematous and both femoral and pedal pulses are normal. 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 No focal weakness. - Constitutional Vitals: Temp Pulse Resp BP Pulse Ox 98.4 F 66 18 123/59 98 04/22/17 11:32 04/22/17 11:32 04/22/17 11:32 04/22/17 11:32 04/22/17 11:32 Plan Activity: no restrictions Weight Bearing Status: Full Weight Bearing Diet: low cholesterol, low salt Follow up with: AALIYAH VALENZUELA MD [Primary Care Provider] - 7 Days Forms: Warfarin Discharge Instruction Prescriptions: buPROPion SR [Wellbutrin SR] 150 mg PO QAM #30 tablet Digoxin [Lanoxin] 0.25 mg PO DAILY #30 tablet FLUoxetine HCL [PROzac] 40 mg PO QDAY #30 capsule Furosemide [Lasix TAB] 40 mg PO QDAY #30 tablet Losartan [Cozaar] 50 mg PO QDAY #30 tablet methOCARBAMOL [Robaxin TAB] 500 mg PO BID #14 tab Metoprolol [Lopressor TAB] 25 mg PO BID #60 tablet Potassium Chloride 20 meq PO QDAY #30 capsule.er traMADol [Ultram 50 MG tab] 50 mg PO Q6HR PRN #10 tablet PRN Reason: Pain Warfarin [Coumadin] 7.5 mg PO 3XW #30 tablet Warfarin [Coumadin] 5 mg PO 4XW #30 tablet
[2017-04-22] MEDS: K-DUR PO SCH (14:33)
[2017-04-22] MEDS: LASIX PO SCH (14:34)
[2017-04-22] MEDS: PROzac PO SCH (14:34)
[2017-04-22] MEDS: ROBAXIN PO SCH (14:35)
[2017-04-22] MEDS: WELLBUTRIN SR PO SCH (14:35)
[2017-04-22] MEDS ORDERED: COUMADIN PO SCH (17:00)
[2017-04-22 17:26] VITALS: BP 129/60
[2017-04-25] MEDS ORDERED: COUMADIN PO SCH (17:00)
== END 2017-04-22 17:26 | disposition home or self-care (01) | DRG 287 ==
LOC: ED 10:04 → 4A 14:57
PROVIDERS: ADMIT Internal Medicine; ATTEND Internal Medicine
PROC: B2111ZZ Fluoroscopy of Multiple Coronary Arteries using Low Osmolar Contrast (ICD-10-PCS; principal; 2017-04-22)
PROC: 4A023N7 Measurement of Cardiac Sampling and Pressure, Left Heart, Percutaneous Approach (ICD-10-PCS; 2017-04-22)
DX: R07.89 Other chest pain (principal); I50.32 Chronic diastolic (congestive) heart failure; I42.0 Dilated cardiomyopathy; J44.9 Chronic obstructive pulmonary disease, unspecified; F41.9 Anxiety disorder, unspecified; F43.10 Post-traumatic stress disorder, unspecified; Z82.49 Family history of ischemic heart disease and other diseases of the circulatory system; Z83.3 Family history of diabetes mellitus; Z80.52 Family history of malignant neoplasm of bladder; Z90.49 Acquired absence of other specified parts of digestive tract; I11.0 Hypertensive heart disease with heart failure; I48.91 Unspecified atrial fibrillation; Z98.84 Bariatric surgery status; Z90.721 Acquired absence of ovaries, unilateral; F17.210 Nicotine dependence, cigarettes, uncomplicated; Z80.9 Family history of malignant neoplasm, unspecified; I48.2 Chronic atrial fibrillation; G89.29 Other chronic pain
CPT/HCPCS: 36415; 71010; 80048; 80162; 82550; 82553; 84484; 85025; 85610; 85730; 93005; 93010; 93306; 99406; J1644; J1650; J2250; J2270; J2405; J3010; J3430; J7040

== ENCOUNTER 2017-10-01 15:07 | Inpatient (IN) | payer OTHER ==
--- NOTE | 2017-10-01 16:21 | XRay Report ---
CHEST TWO VIEWS: 10/01/17 15:07:00 CLINICAL: Shortness of breath. COMPARISON: 04/19/17 FINDINGS: Mild cardiomegaly. Normal pulmonary vessels. Mild aortic tortuosity. The lungs are normally expanded and clear. Mild degenerative changes in the spine. IMPRESSION: Mild cardiomegaly but no CHF.No pneumonia.
[2017-10-01 16:22] LABS: Basophils % (Auto) 0.7 % (0.0-1.8); Eosinophils % (Auto) 1.3 % (0.0-4.3); Hematocrit 36.7 % (30.3-42.9); Hemoglobin 11.3 gm/dl (10.1-14.3); Mean Corpuscular HGB Conc 31 % (30-34); Mean Corpuscular Hemoglobin 23 pg (28-32); Mean Corpuscular Volume 74 fl (79-97); Platelet Count 384 K/mm3 (140-440); Red Blood Count 4.98 M/mm3 (3.65-5.03); Red Cell Distribution Width 16.2 % (13.2-15.2); White Blood Count 9.2 K/mm3 (4.5-11.0)
[2017-10-01 16:31] LABS: INR 1.72 (0.87-1.13)
[2017-10-01 16:32] LABS: Partial Thromboplastin Time 35.4 Sec. (24.2-36.6)
[2017-10-01 16:41] LABS: Anion Gap 20 mmol/L; BUN/Creatinine Ratio 18; Blood Urea Nitrogen 9 mg/dL (7-17); Calcium 9.1 mg/dL (8.4-10.2); Carbon Dioxide 28 mmol/L (22-30); Chloride 96.5 mmol/L (98-107); Glucose 94 mg/dL (65-100); Sodium 140 mmol/L (137-145)
[2017-10-02] MEDS ORDERED: MORPHINE IV ONE (02:51)
[2017-10-02] MEDS ORDERED: ZOFRAN IV ONE (02:51)
--- NOTE | 2017-10-02 02:52 | Emergency Department Report ---
ED General Adult HPI - General Chief complaint: Chest Pain Stated complaint: CARDIAC EPISODE Time Seen by Provider: 10/02/17 02:01 Source: patient Mode of arrival: Ambulatory Limitations: No Limitations - History of Present Illness Initial comments: Patient is a 57-year-old female past medical history of hypertension who presents chest pain. Patient states that earlier on today she had some chest pain was located to the left side of her chest as a pressure type of pain she states that she got diaphoretic when the pain started. Patient is also very nauseous. The pain is an 8 out of 10 does not radiate anywhere nothing makes it better or worse. Patient states that she's never had a pain like this before. - Related Data Previous Rx's Medication Instructions Recorded Last Taken Type Digoxin [Lanoxin] 0.25 mg PO DAILY #30 tablet 04/22/17 Unknown Rx FLUoxetine HCL [PROzac] 40 mg PO QDAY #30 capsule 04/22/17 Unknown Rx Furosemide [Lasix TAB] 40 mg PO QDAY #30 tablet 04/22/17 Unknown Rx Losartan [Cozaar] 50 mg PO QDAY #30 tablet 04/22/17 Unknown Rx Metoprolol [Lopressor TAB] 25 mg PO BID #60 tablet 04/22/17 Unknown Rx Potassium Chloride 20 meq PO QDAY #30 capsule.er 04/22/17 Unknown Rx Warfarin [Coumadin] 5 mg PO 4XW #30 tablet 04/22/17 Unknown Rx Warfarin [Coumadin] 7.5 mg PO 3XW #30 tablet 04/22/17 Unknown Rx buPROPion SR [Wellbutrin SR] 150 mg PO QAM #30 tablet 04/22/17 Unknown Rx methOCARBAMOL [Robaxin TAB] 500 mg PO BID #14 tab 04/22/17 Unknown Rx traMADol [Ultram 50 MG tab] 50 mg PO Q6HR PRN #10 tablet 04/22/17 Unknown Rx Allergies Allergy/AdvReac Type Severity Reaction Status Date / Time NSAIDS (Non-Steroidal AdvReac Unknown Verified 09/15/16 14:36 Anti-Inflamma ED Review of Systems ROS: Stated complaint: CARDIAC EPISODE Other details as noted in HPI Constitutional: denies: chills, fever Eyes: denies: eye pain, eye discharge, vision change ENT: denies: ear pain, throat pain Respiratory: denies: cough, shortness of breath, wheezing Cardiovascular: chest pain. denies: palpitations Endocrine: no symptoms reported Gastrointestinal: nausea. denies: abdominal pain, diarrhea Genitourinary: denies: urgency, dysuria, discharge Musculoskeletal: denies: back pain, joint swelling, arthralgia Skin: denies: rash, lesions Neurological: denies: headache, weakness, paresthesias Psychiatric: denies: anxiety, depression Hematological/Lymphatic: denies: easy bleeding, easy bruising ED Past Medical Hx - Past Medical History Previous Medical History?: Yes Hx Hypertension: Yes Hx Congestive Heart Failure: No Hx Diabetes: No Hx Asthma: No Hx COPD: No Hx HIV: No Additional medical history: Atrial fibrillation - Surgical History Past Surgical History?: Yes Hx Cholecystectomy: Yes Additional Surgical History: gastric by-pass, oophorectomy, hysterectomy, skin grafts, exploratory laparotomy - Social History Smoking Status: Never Smoker Substance Use Type: None - Medications Home Medications: Home Medications Medication Instructions Recorded Confirmed Last Taken Type Digoxin [Lanoxin] 0.25 mg PO DAILY #30 tablet 04/22/17 Unknown Rx FLUoxetine HCL [PROzac] 40 mg PO QDAY #30 capsule 04/22/17 Unknown Rx Furosemide [Lasix TAB] 40 mg PO QDAY #30 tablet 04/22/17 Unknown Rx Losartan [Cozaar] 50 mg PO QDAY #30 tablet 04/22/17 Unknown Rx Metoprolol [Lopressor TAB] 25 mg PO BID #60 tablet 04/22/17 Unknown Rx Potassium Chloride 20 meq PO QDAY #30 capsule.er 04/22/17 Unknown Rx Warfarin [Coumadin] 5 mg PO 4XW #30 tablet 04/22/17 Unknown Rx Warfarin [Coumadin] 7.5 mg PO 3XW #30 tablet 04/22/17 Unknown Rx buPROPion SR [Wellbutrin SR] 150 mg PO QAM #30 tablet 04/22/17 Unknown Rx methOCARBAMOL [Robaxin TAB] 500 mg PO BID #14 tab 04/22/17 Unknown Rx traMADol [Ultram 50 MG tab] 50 mg PO Q6HR PRN #10 tablet 04/22/17 Unknown Rx ED Physical Exam - General Limitations: No Limitations General appearance: alert, in no apparent distress - Head Head exam: Present: atraumatic, normocephalic - Eye Eye exam: Present: normal appearance - ENT ENT exam: Present: mucous membranes moist - Neck Neck exam: Present: normal inspection - Respiratory Respiratory exam: Present: normal lung sounds bilaterally. Absent: respiratory distress - Cardiovascular Cardiovascular Exam: Present: regular rate, normal rhythm. Absent: systolic murmur, diastolic murmur, rubs, gallop - GI/Abdominal GI/Abdominal exam: Present: soft, normal bowel sounds - Extremities Exam Extremities exam: Present: normal inspection - Back Exam Back exam: Present: normal inspection - Neurological Exam Neurological exam: Present: alert, oriented X3 - Psychiatric Psychiatric exam: Present: normal affect, normal mood - Skin Skin exam: Present: warm, dry, intact, normal color. Absent: rash ED Course Vital Signs 10/01/17 10/02/17 10/02/17 15:24 01:06 01:15 Temperature 97.7 F Pulse Rate 83 64 65 Respiratory 18 11 L 13 Rate Blood Pressure 146/79 123/58 O2 Sat by Pulse 99 98 Oximetry 10/02/17 10/02/17 10/02/17 01:31 01:45 02:01 Temperature Pulse Rate 63 65 71 Respiratory 13 15 12 Rate Blood Pressure 123/58 131/71 120/43 O2 Sat by Pulse 97 97 95 Oximetry 10/02/17 10/02/17 10/02/17 02:15 02:31 02:45 Temperature Pulse Rate 73 65 68 Respiratory 10 L 11 L 10 L Rate Blood Pressure 120/43 120/43 133/69 O2 Sat by Pulse 95 98 99 Oximetry 10/02/17 10/02/17 10/02/17 03:01 03:15 03:31 Temperature Pulse Rate 68 65 73 Respiratory 10 L 9 L 10 L Rate Blood Pressure 125/66 133/69 119/53 O2 Sat by Pulse 98 97 95 Oximetry 10/02/17 10/02/17 10/02/17 03:45 04:00 04:15 Temperature Pulse Rate 68 74 66 Respiratory 12 9 L 12 Rate Blood Pressure 107/70 120/53 107/70 O2 Sat by Pulse 95 95 93 Oximetry 10/02/17 10/02/17 10/02/17 04:31 04:45 06:35 Temperature Pulse Rate 81 83 Respiratory 14 17 18 Rate Blood Pressure 104/53 104/53 O2 Sat by Pulse 97 99 Oximetry ED Medical Decision Making - Lab Data Result diagrams: 10/01/17 16:00 10/01/17 16:00 Lab Results 10/01/17 10/01/17 10/01/17 Range/Units 16:00 16:00 16:00 WBC 9.2 (4.5-11.0) K/mm3 RBC 4.98 (3.65-5.03) M/mm3 Hgb 11.3 (10.1-14.3) gm/dl Hct 36.7 (30.3-42.9) % MCV 74 L (79-97) fl MCH 23 L (28-32) pg MCHC 31 (30-34) % RDW 16.2 H (13.2-15.2) % Plt Count 384 (140-440) K/mm3 Lymph % (Auto) 28.9 (13.4-35.0) % [place] % (Auto) 10.4 H (0.0-7.3) % Eos % (Auto) 1.3 (0.0-4.3) % Baso % (Auto) 0.7 (0.0-1.8) % Lymph # 2.6 (1.2-5.4) K/mm3 [place] # 1.0 H (0.0-0.8) K/mm3 Eos # 0.1 (0.0-0.4) K/mm3 Baso # 0.1 (0.0-0.1) K/mm3 Seg Neutrophils % 58.7 (40.0-70.0) % Seg Neutrophils # 5.4 (1.8-7.7) K/mm3 PT 21.0 H (12.2-14.9) Sec. INR 1.72 H (0.87-1.13) APTT 35.4 (24.2-36.6) Sec. Sodium 140 (137-145) mmol/L Potassium 4.0 (3.6-5.0) mmol/L Chloride 96.5 L (98-107) mmol/L Carbon Dioxide 28 (22-30) mmol/L Anion Gap 20 mmol/L BUN 9 (7-17) mg/dL Creatinine 0.5 L (0.7-1.2) mg/dL Estimated GFR > 60 ml/min BUN/Creatinine Ratio 18 % Glucose 94 (65-100) mg/dL Calcium 9.1 (8.4-10.2) mg/dL Troponin T < 0.010 (0.00-0.029) ng/mL 10/01/17 10/01/17 Range/Units 18:28 21:06 WBC (4.5-11.0) K/mm3 RBC (3.65-5.03) M/mm3 Hgb (10.1-14.3) gm/dl Hct (30.3-42.9) % MCV (79-97) fl MCH (28-32) pg MCHC (30-34) % RDW (13.2-15.2) % Plt Count (140-440) K/mm3 Lymph % (Auto) (13.4-35.0) % [place] % (Auto) (0.0-7.3) % Eos % (Auto) (0.0-4.3) % Baso % (Auto) (0.0-1.8) % Lymph # (1.2-5.4) K/mm3 [place] # (0.0-0.8) K/mm3 Eos # (0.0-0.4) K/mm3 Baso # (0.0-0.1) K/mm3 Seg Neutrophils % (40.0-70.0) % Seg Neutrophils # (1.8-7.7) K/mm3 PT (12.2-14.9) Sec. INR (0.87-1.13) APTT (24.2-36.6) Sec. Sodium (137-145) mmol/L Potassium (3.6-5.0) mmol/L Chloride (98-107) mmol/L Carbon Dioxide (22-30) mmol/L Anion Gap mmol/L BUN (7-17) mg/dL Creatinine (0.7-1.2) mg/dL Estimated GFR ml/min BUN/Creatinine Ratio % Glucose (65-100) mg/dL Calcium (8.4-10.2) mg/dL Troponin T < 0.010 < 0.010 (0.00-0.029) ng/mL - EKG Data -: EKG Interpreted by Me - EKG Data 10/02/17 04:36 EKG shows atrial fibrillation no ST segment elevation or T-wave inversion. - Radiology Data Radiology results: report reviewed X-ray: Shows mild cardiomegaly - Medical Decision Making Chief medical diagnosis: Non-Stemi Differential diagnosis: GERD, electrolyte abnormality, arrhythmia We'll get CBC, CMP, chest x-ray, EKG The patient's Lyme and severe chest pain and her cardiac risks factors as initial therapy I will admit patient to the hospitalist service. Discussed case with Dr. Acevedo he agrees with plan. She will need stress test despite having unremarkable blood work to properly rule out ACS patient will also need admission due to her risk factors her heart score being 4. Discuss final patient patient agrees with plan. Patient WILL NOT get 325 mg fast from due to her being on Coumadin for her atrial fibrillation. Critical care attestation.: If time is entered above; I have spent that time in minutes in the direct care of this critically ill patient, excluding procedure time. ED Disposition Clinical Impression: Unstable angina Disposition: OP ADMIT IP TO THIS HOSP Is pt being admited?: Yes Does the pt Need Aspirin: No Condition: Stable Instructions: Angina (ED) Referrals: PRIMARY CARE, [Primary Care Provider] - 3-5 Days
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
[2017-10-02] MEDS ORDERED: MILK OF MAGNESIA PO PRN (08:00)
[2017-10-02] MEDS ORDERED: TYLENOL PO PRN (08:00)
[2017-10-02] MEDS ORDERED: DULCOLAX PR PRN (08:00)
[2017-10-02] MEDS ORDERED: MORPHINE ONE (08:38)
[2017-10-02] MEDS ORDERED: ZOFRAN ONE (08:38)
[2017-10-02] MEDS: MORPHINE IV PRN ×4 (08:41→22:20)
[2017-10-02] MEDS: ZOFRAN IV PRN ×4 (08:41→22:21)
[2017-10-02] MEDS ORDERED: ULTRAM PO PRN (09:00)
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
[2017-10-02] MEDS ORDERED: NON-FORMULARY (Potassium Chloride [Potassium Chloride] 20 MEQ) PO SCH (10:00)
[2017-10-02] MEDS ORDERED: NON-FORMULARY (Fluoxetine Hcl [Prozac] 40 MG) PO SCH (10:00)
[2017-10-02] MEDS: COZAAR PO SCH (10:58)
[2017-10-02] MEDS: PROzac PO SCH (10:59)
[2017-10-02] MEDS: ROBAXIN PO SCH ×2 (10:59→22:19)
[2017-10-02] MEDS: K-DUR PO SCH (10:59)
[2017-10-02] MEDS: LOPRESSOR PO SCH ×2 (10:59→22:21)
[2017-10-02] MEDS: LANOXIN PO SCH (10:59)
[2017-10-02] MEDS: LASIX PO SCH (10:59)
[2017-10-02] MEDS: WELLBUTRIN SR PO SCH (11:00)
[2017-10-02] MEDS ORDERED: COUMADIN NO DOSE TODAY PO ONE (14:29)
[2017-10-03] MEDS: MORPHINE IV PRN ×2 (04:20→09:40)
[2017-10-03] MEDS: ZOFRAN IV PRN ×2 (04:21→10:09)
--- NOTE | 2017-10-03 08:49 | Consultation ---
History of Present Illness Consult date: 10/03/17 Consult reason: atrial fibrillation History of present illness: 57 year old female presents with vague precordial chest pain which have been persistent for 10 days with no aggravating or relieving factors. Patient sees Dr. Luna in the office unless had a recent normal cardiac catheterization and stress tests. Past History Past Medical History: atrial fib, hypertension, other ( cardiomyopathy, atrial fibrillation and PTSD, Agrophobia and Anxiety) Past Surgical History: Other (Gastric Bypass) Social history: smoking. denies: alcohol abuse Family history: hypertension Medications and Allergies Allergies Allergy/AdvReac Type Severity Reaction Status Date / Time NSAIDS (Non-Steroidal AdvReac Unknown Verified 09/15/16 14:36 Anti-Inflamma Home Medications Medication Instructions Recorded Confirmed Last Taken Type Digoxin [Lanoxin] 0.25 mg PO DAILY #30 tablet 04/22/17 10/02/17 Unknown Rx FLUoxetine HCL [PROzac] 40 mg PO QDAY #30 capsule 04/22/17 10/02/17 Unknown Rx Furosemide [Lasix TAB] 40 mg PO QDAY #30 tablet 04/22/17 10/02/17 Unknown Rx Losartan [Cozaar] 50 mg PO QDAY #30 tablet 04/22/17 10/02/17 Unknown Rx Metoprolol [Lopressor TAB] 25 mg PO BID #60 tablet 04/22/17 10/02/17 Unknown Rx Potassium Chloride 20 meq PO QDAY #30 capsule.er 04/22/17 10/02/17 Unknown Rx Warfarin [Coumadin] 5 mg PO 4XW #30 tablet 04/22/17 10/02/17 Unknown Rx Warfarin [Coumadin] 7.5 mg PO 3XW #30 tablet 04/22/17 10/02/17 Unknown Rx buPROPion SR [Wellbutrin SR] 150 mg PO QAM #30 tablet 04/22/17 10/02/17 Unknown Rx methOCARBAMOL [Robaxin TAB] 500 mg PO BID #14 tab 04/22/17 10/02/17 Unknown Rx traMADol [Ultram 50 MG tab] 50 mg PO Q6HR PRN #10 tablet 04/22/17 10/02/17 Unknown Rx Active Meds: Active Medications Acetaminophen (Tylenol) 650 mg PO Q4H PRN PRN Reason: Pain MILD(1-3)/Fever >100.5/JIMÉNEZ Bisacodyl (Dulcolax) 10 mg CO QDAY PRN PRN Reason: Constipation unrelieved by MOM Bupropion HCl (Wellbutrin Sr) 150 mg PO QAM [facility] Last Admin: 10/02/17 11:00 Dose: 150 mg Digoxin (Lanoxin) 0.25 mg PO DAILY [facility] Last Admin: 10/02/17 10:59 Dose: 0.25 mg Fluoxetine HCl (Prozac) 40 mg PO QDAY [facility] Last Admin: 10/02/17 10:59 Dose: 40 mg Furosemide (Lasix) 40 mg PO QDAY [facility] Last Admin: 10/02/17 10:59 Dose: 40 mg Losartan Potassium (Cozaar) 50 mg PO QDAY [facility] Last Admin: 10/02/17 10:58 Dose: 50 mg Magnesium Hydroxide (Milk Of Magnesia) 30 ml PO Q4H PRN PRN Reason: Constipation Methocarbamol (Robaxin) 500 mg PO BID [facility] Last Admin: 10/02/17 22:19 Dose: 500 mg Metoprolol Tartrate (Lopressor) 25 mg PO BID [facility] Last Admin: 10/02/17 22:21 Dose: Not Given Morphine Sulfate (Morphine) 2 mg IV Q4H PRN PRN Reason: Pain, Moderate (7-10) Last Admin: 10/03/17 04:20 Dose: 2 mg Ondansetron HCl (Zofran) 4 mg IV Q4H PRN PRN Reason: Nausea And Vomiting Last Admin: 10/03/17 04:21 Dose: 4 mg Pantoprazole Sodium (Protonix) 40 mg IV DAILY [facility] Potassium Chloride (K-Dur) 20 meq PO QDAY [facility] Last Admin: 10/02/17 10:59 Dose: 20 meq Tramadol HCl (Ultram) 50 mg PO Q6H PRN PRN Reason: Pain Review of Systems Constitutional: no weight loss, no weight gain, no anorexia, no fatigue Cardiovascular: no chest pain, no orthopnea, no palpitations, no shortness of breath Respiratory: no cough, no hemoptysis, no congestion Gastrointestinal: no abdominal pain, no nausea, no vomiting, no diarrhea, no melena Genitourinary Female: no dyspareunia, no dysmenorrhea, no pelvic pain, no urinary frequency Musculoskeletal: no neck stiffness, no neck pain, no hot joints Integumentary: no rash, no pruritis Neurological: no head injury, no paralysis, no weakness, no parathesias Psychiatric: anxiety, sleep disturbances Endocrine: no cold intolerance, no heat intolerance, no polyphagia, no excessive thirst, no polydipsia, no polyuria Hematologic/Lymphatic: no easy bruising, no easy bleeding Allergic/Immunologic: no urticaria, no allergic rhinitis Physical Examination Vital Signs Temp Pulse Resp BP Pulse Ox 97.7 F 83 18 146/79 99 10/01/17 15:24 10/01/17 15:24 10/01/17 15:24 10/01/17 15:24 10/01/17 15:24 General appearance: no acute distress, well-nourished, obese HEENT: Positive: PERRL, Mucus Membranes Moist Neck: Positive: neck supple, trachea midline. Negative: JVD/HJR Cardiac: Positive: Reg Rate and Rhythm, S1/S2. Negative: Audible Murmur Lungs: Positive: clear to auscultation, Normal Breath Sounds Neuro: Positive: Grossly Intact Abdomen: Positive: Soft, Active Bowel Sounds. Negative: Tender, Distended Female genitourinary: deferred Skin: Positive: Clear Incision: Cardiac Cath Site Musculoskeletal: No Pain, Normal Range of Motion Extremities: Present: normal. Absent: edema Results 10/01/17 16:00 10/01/17 16:00 EKG interpretations - Telemetry EKG Rhythm: Atrial Fibrillation Assessment and Plan 1. Atypical noncardiac chest pain resolved 2. Chronic atrial fibrillation with a controlled ventricular response 3. Anxiety disorder. 4. Obesity. Plan. Resume home medication including warfarin for PT/INR. Discharge planning follow -up with [facility].
[2017-10-03] MEDS: PROzac PO SCH (09:35)
[2017-10-03] MEDS: LASIX PO SCH (09:35)
[2017-10-03] MEDS: COZAAR PO SCH (09:36)
[2017-10-03] MEDS: K-DUR PO SCH (09:38)
[2017-10-03] MEDS: LANOXIN PO SCH (09:38)
[2017-10-03] MEDS: ROBAXIN PO SCH (09:38)
[2017-10-03] MEDS: LOPRESSOR PO SCH (09:39)
[2017-10-03] MEDS: WELLBUTRIN SR PO SCH (09:39)
[2017-10-03] MEDS ORDERED: PROTONIX IV SCH (10:00)
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
[2017-10-03 12:54] VITALS: BP 168/64
[2017-10-04] MEDS ORDERED: PROTONIX PO SCH (10:00)
== END 2017-10-03 13:08 | disposition home or self-care (01) | DRG 206 ==
LOC: ED 15:07 → 4A 10-02 07:55
PROVIDERS: ADMIT Internal Medicine; ATTEND Internal Medicine
DX: M94.0 Chondrocostal junction syndrome [Tietze] (principal); I42.9 Cardiomyopathy, unspecified; I10 Essential (primary) hypertension; Z88.8 Allergy status to other drugs, medicaments and biological substances; I48.91 Unspecified atrial fibrillation; Z90.710 Acquired absence of both cervix and uterus; Z82.49 Family history of ischemic heart disease and other diseases of the circulatory system; K21.9 Gastro-esophageal reflux disease without esophagitis; F43.10 Post-traumatic stress disorder, unspecified; F41.1 Generalized anxiety disorder; M48.02 Spinal stenosis, cervical region; E66.01 Morbid (severe) obesity due to excess calories; Z68.33 Body mass index [BMI] 33.0-33.9, adult; F17.200 Nicotine dependence, unspecified, uncomplicated; Z71.6 Tobacco abuse counseling
CPT/HCPCS: 36415; 71020; 80048; 84484; 85025; 85610; 85730; 93005; 93010; 96374; 96375; C9113; J2270; J2405